=== PATIENT | female | born 1930 | race African-American/Black ===

== ENCOUNTER 2017-06-21 01:14 | Inpatient (IN) | payer OTHER, MEDICARE ==
[~2017-06-21] VITALS: Ht 160 cm; Wt 99.8 kg
[2017-06-21] VITALS (13 sets, daily range): BP systolic 0–138; BP diastolic 0–89
--- NOTE | 2017-06-21 01:14 | NUR ---
PT BIBA ALS. DR. MEZA EVALUATING PATIENT ON [facility] [place]
--- NOTE | 2017-06-21 01:22 | NUR ---
PT TAKEN TO BED 11
--- NOTE | 2017-06-21 01:29 | NUR ---
Note karsten in ED - 06/21/17 at 0147 by MEDFL CALLED/SPOKED TO POISON CONTROL MALIA; INSTRUCTIONS ARE TO WATCH FOR HYPOGLYCEMIA;N/V; 2 HOUR OBSERVATION IS RECOMMENDATION WITH ACCUCHECK; ER MD DR MEZA MADE AWARE
--- NOTE | 2017-06-21 01:29 | NUR ---
PATIENT PRESENTS TO ED WITH LEAKING G TUBE. PT DENIES N/V/D; SKIN IS PINK/WARM/DRY; AAOX1 WITH EVEN AND STEADY GAIT; LUNGS CLEAR BL; HR EVEN AND REGULAR; PT DENIES ANY FEVER, CP, SOB, OR COUGH AT THIS TIME; PATIENT STATES PAIN OF 0/10 AT THIS TIME; VSS; PATIENT POSITIONED FOR COMFORT; HOB ELEVATED; BEDRAILS UP X2; BED DOWN. ER MD MADE AWARE OF PT STATUS.
--- NOTE | 2017-06-21 01:36 | NUR ---
PT IS TRACH TO VENT AC/VC MODE FIO2 28 VT 450ML RATE 10 FLOW 40 PEEP 5 PMAX 40
--- NOTE | 2017-06-21 01:37 | NUR ---
RT, LAB, AND X-RAY AT BEDSIDE
--- NOTE | 2017-06-21 01:42 | NUR ---
Patient noted to have existing wounds upon arrival to ER. Photos taken of wound and placed in chart. Wound covered with dressing. Physician informed.
--- NOTE | 2017-06-21 01:50 | NUR ---
PT CAME THRU ER. PT IS TRACHED WITH PORTEX 7. TRACH IS IN PLACE AND SECURED. PT IS VENT DEPENDENT. PT ON VENT WITH SETTINGS AC 10,450,+5,24%(SETTINGS PER HER TRANSPORT RT) . PT IS AWAKE. DAUGHTER AT BEDSIDE. VENT IS CONNECTED TO RED OUTLET. ALARMS ARE AUDIBLE. NO SOB OR DISTRESS NOTED. TRIED TO COLLECT SPUTUM SAMPLE BUT IS CLEAR AT THIS TIME. MD MEZA AWARE. NO ORDERS OF NOW. WILL CONTINUE TO MONITOR.
[2017-06-21 02:03] LABS: BASOPHILS # (AUTO) 0.1 K/uL (0.00-0.22); BASOPHILS % (AUTO) 1.8 % (0.0-2.0); EOSINOPHILS # (AUTO) 0.1 K/uL (0-0.4); HEMOGLOBIN 8.9 g/dL (12.0-16.0); LYMPHOCYTES # (AUTO) 1.7 K/uL (2.5-16.5); LYMPHOCYTES % (AUTO) 30.7 % (20.5-51.1); MEAN CORPUSCULAR HEMOGLOBIN 32 pg (27-31); MEAN CORPUSCULAR HGB CONC 33 g/dL (33-37); MEAN CORPUSCULAR VOLUME 96 fL (80-94); MONOCYTES # (AUTO) 0.3 K/uL (0.8-1.0); MONOCYTES % (AUTO) 6.1 % (1.7-9.3); NEUTROPHILS # (AUTO) 3.4 K/uL (1.8-7.7); NEUTROPHILS % (AUTO) 60.4 % (42.2-75.2); PLATELET COUNT (AUTO) 244 K/uL (140-450); RED BLOOD CELL COUNT(AUTO) 2.81 MIL/uL (4.20-5.40); WHITE BLOOD COUNT (AUTO) 5.6 K/uL (4.8-10.8)
[2017-06-21 02:27] LABS: PROTHROMBIN TIME 11.9 secs (10.8-13.4)
[2017-06-21 02:30] LABS: ALBUMIN 2.1 g/dL (3.4-5.0); ANION GAP 14.1 (8-16); ASPARTATE AMINOTRANSFERASE 18 U/L (15-37); CARBON DIOXIDE 26.6 mmol/L (21-32); CHLORIDE 98 mmol/L (98-107); CREATININE 2.5 mg/dL (0.6-1.3); GLUCOSE 83 mg/dL (74-106); POTASSIUM 4.7 mmol/L (3.5-5.1); SODIUM SERUM 134 mmol/L (136-145)
[2017-06-21 02:32] LABS: UREA NITROGEN, BLOOD 117 mg/dL (7-18)
[2017-06-21] MEDS ORDERED: NACL 0.9% 1,000 ML IV SCH (03:26)
[2017-06-21] MEDS ORDERED: DOCUSATE SODIUM 100 MG GELCAP PO PRN (03:30)
[2017-06-21] MEDS ORDERED: ACETAMINOPHEN 325 MG TAB PO PRN (03:30)
[2017-06-21] MEDS ORDERED: ONDANSETRON 4 MG/2 ML VIAL IM/IVP PRN (03:30)
[2017-06-21] MEDS ORDERED: HYDROcodone/APAP 7.5/325 MG 1 TAB PO PRN (03:30)
[2017-06-21] MEDS ORDERED: MORPHINE SULFATE 2 MG/ML SYR IVP PRN (03:30)
[2017-06-21] MEDS ORDERED: ASPI81CT89 PO (03:51)
[2017-06-21] MEDS ORDERED: ACET-2619 GT (03:51)
[2017-06-21] MEDS ORDERED: LOSA25TA22 GT (03:51)
[2017-06-21] MEDS ORDERED: FURO-572 GT (03:51)
[2017-06-21] MEDS ORDERED: SENN-73 GT (03:51)
[2017-06-21] MEDS ORDERED: POTA10TE30 GT (03:51)
[2017-06-21] MEDS ORDERED: ASCO500T45 GT/PO (03:51)
[2017-06-21] MEDS ORDERED: DIGO0.122 GT (03:51)
[2017-06-21] MEDS ORDERED: CARV6.25 PO (03:51)
[2017-06-21] MEDS ORDERED: KEP500L GT (03:51)
[2017-06-21] MEDS ORDERED: PRON INH (03:51)
[2017-06-21] MEDS ORDERED: CHLO480L1 PO (03:51)
[2017-06-21] MEDS ORDERED: METF1000 GT (03:51)
[2017-06-21] MEDS ORDERED: FERR75LI22 GT (03:51)
--- NOTE | 2017-06-21 04:02 | NUR ---
RECEIVED REPORT FROM PRIVATE DUTY LPN, PT IS APHASIC, ON A TRACH TO VENT WITH SETTINGS FOLLOWS: FIO2 28%, PEEP 5, VT 450, RATE 10. PT HAS PICC LINE TO LEFT UPPER ARM, ACCORDING TO PT DAUGHTER IT WAS PUT IN AT [facility] LAST WEEK. PT IS BEDBOUND WITH UPPER EXTREMITIES CONTRACTED AND LOWER EXTREMITIES EXTENDED, PT HAS SACRAL PRESSURE WOUND. UPDATED BOARD. HUNG BAG OF IV FLUIDS (NS@90ML/HR). OBTAINED MRSA SWAB OF NARES AND SENT TO LAB. DISCUSSED PLAN OF CARE WITH PT DAUGHTER, PT DAUGHTER VERBALIZED UNDERSTANDING. VITAL SIGNS WITHIN NORMAL LIMITS. PT IN STABLE CONDITION, NO SIGNS OF DISTRESS NOTED. ER NURSE SAID BLOOD SUGAR WAS 59 BEFORE COMING TO ER AND ER DOCTOR TOLD NURSE NOT TO GIVE ANYTHING. CALLED DR ZAMORA AND ASKED IF IT WAS OKAY TO OVERRIDE PYXIS TO GET DEXTROSE 50%, DR ZAMORA AGREED AND SAID HE WOULD ALSO CHANGE IVF. BED IN LOWEST POSITION, CALL LIGHT WITHIN REACH. WILL CONTINUE TO MONITOR.
--- NOTE | 2017-06-21 04:04 | NUR ---
Patient will be admitted to care of DR. CHRISTIAN. Admited to MED SURG. Will go to [facility] [address]. Belongings list completed. Report to JARVIS LUCERO. ALSO ENDORSE BS 59 , ER MD DR. LAU STATES HE WILL CONTACT ADMITTING DR LESLIE FLOOR ORDERS.
[2017-06-21] MEDS ORDERED: DEXTROSE 25% 10 ML SYR IVP ONE (04:05)
[2017-06-21] MEDS ORDERED: DEXTROSE 50% 50 ML SYR IVP ONE (04:06)
[2017-06-21] MEDS ORDERED: DEXTROSE 50% 50 ML SYR IVP PRN (04:10)
[2017-06-21] MEDS: DEXT 5% /NACL 0.9% 1,000 ML IV SCH ×2 (04:14→14:46)
--- NOTE | 2017-06-21 04:15 | NUR ---
TRANSFERRED PT FROM ED TO TELE WITH NO INCIDENT. PT IS AWAKE. DAUGHTER AT BEDSIDE. NO SOB OR DISTRESS NOTED. CLEAR BREATH SOUNDS. WILL CONTINUE TO MONITOR.
--- NOTE | 2017-06-21 04:20 | NUR ---
ADMINISTERED DEXTROSE AND REPLACED BAG OF NS WITH BAG OF D5NS@100ML/HR. PT IN STABLE CONDITION, NO SIGNS OF DISTRESS NOTED. BED IN LOWEST POSITION, CALL LIGHT WITHIN REACH. WILL CONTINUE TO MONITOR.
[2017-06-21 04:43] LABS: PHOSPHORUS 5.7 mg/dL (2.5-4.9); THYROID STIMULATING HORMONE 3.31 uIU/mL (0.34-3.74)
[2017-06-21 04:45] LABS: CHOL/HDL RATIO 20.2 (1-4.5)
--- NOTE | 2017-06-21 06:35 | NUR ---
APPLIED ORDERED SCD'S.
[2017-06-21] MEDS: BLOOD GLUCOSE MONITORING 1 DEV DEV FS SCH ×4 (07:00→21:11)
--- NOTE | 2017-06-21 07:21 | NUR ---
ENDORSED PT IN STABLE CONDITION TO DAY SHIFT RN FOR CONTINUITY OF CARE.
--- NOTE | 2017-06-21 07:21 | NUR ---
ENDORSED PT IN STABLE CONDITION TO DAY SHIFT RN FOR CONTINUITY OF CARE.
--- NOTE | 2017-06-21 07:22 | NUR ---
RECEIVED REPORT FROM NURSING PROJECT COORDINATOR NURSE. PATIENT LYING DOWN IN BED SLEEPING, AROUSABLE BY VOICE AND LIGHT SHAKING. NO DISTRESS NOTED. RESPIRATIONS EVEN, UNLABORED, ON TRACH TO VENT DEPENDENT. VENTILATOR SETTINGS: FIO2:24%, VT:450, RATE:10, PEEP:5. AAOX1, APHASIC, SKIN COLOR APPROPRIATE TO ETHNICITY, WARM TO TOUCH. AAOX1, APHASIC, NON-VERBAL. HAS SACRAL WOUND, DRESSING IS DRY AND INTACT. WOUND CARE EVALUATION CONSULT ALREADY IN PLACE FOR TODAY. LUNGS WHEEZING HEARD THROUGHOUT ALL LOBES. ABDOMEN SOFT, OLD GTUBE IN PLACE WITH STOMA COVERED IN DRESSING AND SHOWS GREENISH/BLACK DRAINAGE ON DRESSING. GREGG CATHETER IN PLACE, DRAINING CLEAR, YELLOW URINE. REVIEWED PLAN OF CARE WITH PATIENT. UNABLE TO COMPREHEND. SAFETY MEASURES IN PLACE, CALL LIGHT WITHIN REACH, FALL PRECAUTIONS IN PLACE. WILL CONTINUE TO MONITOR.
[2017-06-21] MEDS: ALBUTEROL SULFATE/IPRATROPIU 3 ML SOL IH SCH ×3 (08:08→14:55)
--- NOTE | 2017-06-21 08:09 | NUR ---
RECEIVED ON A [employer] R860 VENTILATOR PLUGGED INTO RED OUTLET TOLERATING WELL WITHOUT ADVERSE REACTIONS NOTED TO A PORTEX DCT #7 AIRWAY SECURED WITH A TRACH TUBE KATE CUFF PRESSURE MEASURED NOTED WITH A BRYSON CUFFLATOR AMBU BAG AT HOB LOC ASLEEP RESTING WELL BREATH SOUNDS RHONCHI BILATERAL WITH GOOD CHEST RISE DEP TRACHEAL SUCTION FOR MODERATE THICK YELLOW SECRETIONS AIRWAY PATENT
[2017-06-21] MEDS ORDERED: ALBUTEROL SULFATE/IPRATROPIU 3 ML SOL IH SCH (09:00)
[2017-06-21] MEDS: LOSARTAN 25 MG TAB GT SCH (09:00)
[2017-06-21] MEDS ORDERED: FERROUS SULFATE 300 MG/5 ML UDC GT SCH (09:00)
[2017-06-21] MEDS ORDERED: CALCIUM ACETATE 667 MG TAB PO SCH (09:00)
[2017-06-21] MEDS ORDERED: FUROSEMIDE 40 MG/5 ML ORAL SOL UDC GT SCH (09:00)
[2017-06-21] MEDS ORDERED: SENNA 8.6 MG TAB GT SCH (09:00)
[2017-06-21] MEDS: CARVEDILOL 6.25 MG TAB GT SCH (09:00)
[2017-06-21] MEDS ORDERED: ASPIRIN 81 MG TAB.CHEW PO ONE (09:00)
[2017-06-21] MEDS ORDERED: metFORMIN 850 MG TAB GT SCH (09:00)
--- NOTE | 2017-06-21 09:30 | NUR ---
WOUND CARE EVALUATION NOTE REASON FOR EVALUATION: INTERGLUTEAL MOISTURE ASSOCIATED SKIN DAMAGE COMPLETE SKIN ASSESSMENT DONE ON THIS 87 Y/O FEMALE PATIENT ADMITTED TO [facility] FOR G-TUBE MALFUNCTION. PAST MEDICAL HX INCLUDE ANEMIA, DM, CHRONIC RESPIRATORY FAILURE AND STROKE WITH LEFT SIDED HEMIPARESIS. ALL ABOVE INFORMATION WAS OBTAINED FROM THE ADMISSION H&P. LABS ARE WBC 5.6, H/H 8.9/27.0, GLUCOSE 83, ALBUMIN 2.1. PT IS APHASIC, TRACH TO VENT. SKIN WARM AND DRY, NON-PITTING EDEMA NOTED NOTED TO BLE, NO HAIR GROWTH, BILATERAL DORSAL PEDAL PULSES PRESENT. GREGG CATHETER IN PLACE DRAINING CLEAR YELLOW URINE. PATIENT NEEDS MAXIMUM ASSISTANCE IN TURNING. INITIAL PLAN OF CARE AND PRESSURE PREVENTIVE MEASURE DISCUSSED WITH PRIMARY RN. INTEGUMENTARY: INTERGLUTEAL MOISTURE ASSOCIATED SKIN DAMAGE WITH MEASUREMENTS 1.5CM X 1.0CM X 0.2CM RIGHT HAND SKIN TEAR TRACHEOSTOMY STOMA SITE CLEAN AND SURROUNDING SITE INTACT DRAINAGE NOTED TO GT STOMA SITE PICC LINE TO THE LEFT UPPER ARM INTACT COVERED WITH CLEAN AND DRY DRESSING RECOMMENDATIONS -CLEANSE INTERGLUTEAL SKIN DAMAGE WITH SOAP AND WATER. PAT DRY. APPLY Z-GUARD THEN COVER WITH OPTIFOAM DRESSING BID OR PRN IF SOILING -CONSULT GI SPECIALIST FOR G-TUBE LEAK. -DRY GT STOMA SURROUNDING WITH GAUZE. CLEANSE WITH SUREPREP SKIN PROTECTIVE BARRIER WIPE. APPLY DRAIN SPONGE DRESSING DAILY OR PRN -APPLY VERSATEL DRESSING TO RIGHT HAND SKIN TEAR. CHANGE DRESSING Q7DAYS OR PRN - TURN AND REPOSITION PATIENT Q2H TO LEFT AND RIGHT ONLY TO OFFLOAD SACRALCOCCYX -ASSESS AND MONITOR SKIN CONDITION DURING POSITION CHANGE -OFFLOAD BILATERAL HEELS BY PLACING PILLOWS UNDER CALVES AT ALL TIMES, UNLESS CONTRAINDICATED -PRESSURE REDISTRIBUTION SURFACE THERAPY -KEEP SKIN CLEAN AND DRY AT ALL TIMES -RD CONSULT RECOMMENDATIONS DISCUSSED WITH PRIMARY RN. PLEASE CONTACT WOUND CARE NURSE FOR ANY QUESTIONS AND CHANGES IN SKIN CONDITION.
--- NOTE | 2017-06-21 09:48 | NUR ---
AWAKE STABLE NO EVIDENCE OF PULMONARY DISTRESS NOTED BREATH SOUNDS DIFFUSED RHONCHI BILATERAL WITH GOOD CHEST RISE DEEP TRACHEAL SUCTION FOR SMALL THICK PALE YELLOW SECRETIONS AIRWAY PATENT
--- NOTE | 2017-06-21 10:15 | NUR ---
PATIENT LYING IN BED COMFORTABLY. NO DISTRESS NOTED. VENTILATOR SETTING UNCHANGED. SCHEDULED MEDICATIONS DUE GIVEN PER DR. HARRELL ORDERS EVEN THOUGH GTUBE IS LEAKING. CALLED DR. OSUNA FOR GI CONSULT AND POSSIBLE GTUBE REPLACEMENT TODAY. DR. OSUNA VERBALIZED THAT HE WILL STOP BY AND POSSIBLY REPLACE GTUBE SOMETIME TODAY. SAFETY MEASURES IN PLACE, CALL LIGHT WITHIN REACH, FALL PREVENTIONS IN PLACE. WILL CONTINUE TO MONITOR.
[2017-06-21] MEDS: levETIRAcetam 100 MG/ML ORASYR GT SCH ×2 (10:18→21:52)
[2017-06-21] MEDS: PANTOPRAZOLE 40 MG INJ VIAL IVP SCH (10:19)
[2017-06-21] MEDS: DIGOXIN 0.125 MG/2.5 ML UDC GT SCH (10:19)
--- NOTE | 2017-06-21 10:35 | NUR ---
PATIENT HAS BEEN SCREENED AND CATEGORIZED HIGH NUTRITION RISK. PATIENT WILL BE SEEN WITHIN 1-2 DAYS OF ADMISSION. 06/21/17 - 06/22/[address]
--- NOTE | 2017-06-21 10:42 | NUR ---
REG NOTE PER ANNE OF [facility] PH# [phone], REG IS ABDULKADIR INITIAL REVIEW FAXED TO [facility] [phone] PH# [phone] REG PANCHAL EXT [phone]
[2017-06-21 10:45] LABS: AMYLASE 42 U/L (25-115); ANION GAP 14.7 (8-16); ASPARTATE AMINOTRANSFERASE 18 U/L (15-37); CARBON DIOXIDE 27.8 mmol/L (21-32); CHLORIDE 99 mmol/L (98-107); CREATININE 2.5 mg/dL (0.6-1.3); GLUCOSE 127 mg/dL (74-106); POTASSIUM 4.5 mmol/L (3.5-5.1); SODIUM SERUM 137 mmol/L (136-145)
[2017-06-21 10:52] LABS: UREA NITROGEN, BLOOD 114 mg/dL (7-18)
[2017-06-21] MEDS ORDERED: MILD SOAP AND WATER TP PRN (11:45)
[2017-06-21] MEDS ORDERED: Z-GUARD PASTE TP PRN (11:45)
--- NOTE | 2017-06-21 11:45 | NUR ---
ULTRASOUND IN PROGRESS SHEEP AND WHEAT FARMER TO ATTEMPT HHN THERAPY, PATIENT AND VENTILATOR ASSESSMENT AT A LATER TIME NO PATIENT DISTRESS NOTED
--- NOTE | 2017-06-21 12:04 | NUR ---
NO PULMONARY DISTRESS NOTED AT THIS TIME GOOD CHEST RISE BREATH SOUNDS RALES AT RIGHT SIDE TO CLEAR AT LEFT SIDE DEEP TRACHEAL SUCTION FOR SMALL THIN PALE YELLOW SECRETIONS AIRWAY PATENT
--- NOTE | 2017-06-21 13:00 | NUR ---
PATIENT LYING IN BED. NO DISTRESS NOTED. RESPIRATIONS EVEN, UNLABORED, ON VENT TO TRACH. VENTILATOR SETTINGS UNCHANGED. DR. OSUNA AT BEDSIDE REVIEWING PLAN OF CARE WITH PATIENT. PER DR. OSUNA, GTUBE REMOVED AND COVERED STOMA SITE WITH GAUZE AND PAPER TAPE TO LET STOMA SITE SIZE DECREASE IN SIZE. DR. HARRELL AWARE OF PLAN OF CARE. WILL CONTINUE TO MONITOR.
--- NOTE | 2017-06-21 13:34 | NUR ---
NO APPARENT RESPIRATORY DISTRESS NOTED GOOD CHEST RISE
--- NOTE | 2017-06-21 13:51 | NUR ---
06/21/17 RD INITIAL ASSESSMENT COMPLETED PLEASE REFER TO NUTRITION ASSESSMENT UNDER CARE ACTIVITY FOR ESTIMATED NUTRITIONAL NEEDS. 1. ONCE GTUBE SUCCESSFULLY REPLACED, RECOMMEND THE FOLLOWING NUTRITION SUPPORT: NOVASOURCE RENAL AT 30 ML/HR -THIS WILL PROVIDE 720 ML TOTAL VOLUME, 1440 KCAL, 65 GM PROTEIN AND 516 ML FREE WATER TO MEET 98% OF ESTIMATED KCAL NEEDS AND 100% OF ESTIMATED PROTEIN NEEDS 2. RD WILL CONTINUE TO MONITOR RENAL LAB VALUES. IF RENAL LAB VALUES IMPROVE, RD WILL INCREASE PROTEIN NEEDS FOR TRACH TO VENT AND PRESSURE ULCER. 3. RD TO FOLLOW-UP 2-3 DAYS, HIGH RISK ZACHARY SALVADOR RD
--- NOTE | 2017-06-21 14:55 | NUR ---
STABLE NO DISTRESS NOTED BREATH SOUNDS CLEAR BILATERAL WITH GOOD CHEST RISE AND AERATION THROUGHOUT AIRWAY PATENT
--- NOTE | 2017-06-21 15:00 | NUR ---
DR. ARCEO AT BEDSIDE REVIEWING PLAN OF CARE WITH PATIENT. WILL CONTINUE TO MONITOR.
--- NOTE | 2017-06-21 16:30 | NUR ---
PATIENT LYING IN BED COMFORTABLY. DAUGHTER AT BEDSIDE. NO DISTRESS NOTED. FLACC 0. CONDITION UNCHANGED. SAFETY MEASURES IN PLACE, CALL LIGHT WITHIN REACH. WILL CONTINUE TO MONITOR.
[2017-06-21] MEDS: CALCIUM ACETATE 667 MG TAB PO SCH (17:00)
--- NOTE | 2017-06-21 17:00 | NUR ---
PATIENT LYING DOWN IN BED WITH DAUGHTER AT BEDSIDE. NO DISTRESS NOTED CONDITION UNCHANGED. GTUBE MEDICATION DUE NOT GIVEN DUE TO NO GTUBE IN PLACE. WILL NOTIFY MD. WILL CONTINUE TO MONITOR.
[2017-06-21] MEDS ORDERED: DOCUSATE 100 MG/10 ML UDC NG PRN (17:20)
--- NOTE | 2017-06-21 18:00 | NUR ---
NO SOB NOTED GOOD CHEST RISE DEEP TRACHEAL SUCTION FOR SCANT THICK PALE YELLOW SECRETIONS AIRWAY PATENT
[2017-06-21] MEDS: PIPER/TAZO 2.25GM/D5W PREMIX 50 ML IV SCH (18:36)
--- NOTE | 2017-06-21 18:36 | NUR ---
PATIENT LYING DOWN IN BED. NO DISTRESS NOTED. RESPIRATIONS EVEN, UNLABORED, ON TRACH TO VENT. VENTILATOR SETTING UNCHANGED. SCHEDULED ANTIBIOTIC MEDICATION DUE GIVEN. DAUGHTER AT BEDSIDE. SAFETY MEASURES IN PLACE, CALL LIGHT WITHIN REACH. WILL CONTINUE TO MONITOR.
[2017-06-21] MEDS ORDERED: FUROSEMIDE 100 MG in DEXTROSE 5% 100 ML IV SCH (19:10)
[2017-06-21] MEDS ORDERED: ALBUTEROL SULFATE/IPRATROPIU 3 ML SOL IH PRN (19:20)
--- NOTE | 2017-06-21 19:27 | NUR ---
GAVE REPORT TO DROP FORGER NURSE FOR CONTINUITY OF CARE. PATIENT IN STABLE CONDITION.
--- NOTE | 2017-06-21 19:40 | NUR ---
RECEIVED PT ON AC FIO2 24%, VT 450, RR 10, PEEP 5. PT HAS PORTEX 7 AND IT IS SECURED AND PATENT. PT IS AT REST WITH NO SOB OR RESPIRATORY DISTRESS. VENTILATOR IS ON RED OUTLET AND AMBU BAG IS PRESENT IN ROOM.
[2017-06-21 20:27] LABS: APPEARANCE,URINE CLEAR (CLEAR); BILIRUBIN,URINE NEGATIVE (NEGATIVE); BLOOD, URINE 2+ (NEGATIVE); COLOR,URINE YELLOW (YELLOW); LEUKOCYTE ESTERASE ,URINE 2+ (NEGATIVE); NITRITE, URINE NEGATIVE (NEGATIVE); UGLUCOSE NEGATIVE (NEGATIVE)
[2017-06-21 20:38] LABS: RBC,URINE 0-5 (RARE) /HPF (0-5)
--- NOTE | 2017-06-21 21:45 | NUR ---
INSERTED NGT FIRST TRY, PT TOLERATED WELL. AUSCULTATED FOR PLACEMENT VERIFICATION.
[2017-06-21] MEDS: SENNA 8.6 MG TAB GT SCH (21:52)
--- NOTE | 2017-06-21 21:55 | NUR ---
ADMINISTERED SCHEDULED MEDICATIONS THROUGH NG-TUBE, PT TOLERATED WELL. PT IN STABLE CONDITION, NO SIGNS OF DISTRESS NOTED. BED IN LOWEST POSITION, CALL LIGHT WITHIN REACH. WILL CONTINUE TO MONITOR.
--- NOTE | 2017-06-21 22:12 | NUR ---
SPOKE TO DR ZAMORA ABOUT PHARMACY CALLING TO SAY THE RATE OF LASIX DRIP NEEDS TO BE ADJUSTED AND TO DOUBLE CHECK IF GTUBE LASIX WILL BE CONTINUED OR DISCONTINUED. DR ZAMORA SAID HE WILL DISCONTINUE GTUBE LASIX AND ADJUST LASIX DRIP RATE.
[2017-06-21] MEDS ORDERED: FUROSEMIDE 100 MG/10 ML VIAL ONE (23:54)
[2017-06-22] VITALS (11 sets, daily range): BP systolic 106–164; BP diastolic 40–83
--- NOTE | 2017-06-22 | NUR ---
VITAL SIGNS WITHIN NORMAL LIMITS. PT IN STABLE CONDITION, NO SIGNS OF DISTRESS NOTED. BED IN LOWEST POSITION, CALL LIGHT WITHIN REACH. WILL CONTINUE TO MONITOR.
[2017-06-22] MEDS: FUROSEMIDE 100 MG in DEXTROSE 5% 100 ML IV SCH ×3 (00:09→21:49)
--- NOTE | 2017-06-22 00:10 | NUR ---
LASIX DRIP STARTED AT 10ML/HR. VITAL SIGNS FOLLOWS BP 164/83, HR 88, RR 16, SPO2 96, TEMP 97.5, AND FLACC 0.
[2017-06-22] MEDS: PIPER/TAZO 2.25GM/D5W PREMIX 50 ML IV SCH ×4 (01:19→21:46)
--- NOTE | 2017-06-22 03:25 | NUR ---
PT CRYING/MOANING, FLACC SCORE 8, MEDICATED WITH MORPHINE TO RELIEVE PAIN. PT TOLERATED WELL.
--- NOTE | 2017-06-22 04:00 | NUR ---
VITAL SIGNS WITHIN NORMAL LIMITS. PT IN STABLE CONDITION, NO SIGNS OF DISTRESS NOTED. BED IN LOWEST POSITION, CALL LIGHT WITHIN REACH. WILL CONTINUE TO MONITOR.
--- NOTE | 2017-06-22 05:18 | NUR ---
PT IS STILL ON AC, VT 450, PEEP 5, FI02 24. PT IS NOT IN RESPIRATORY DISTRESS OR SOB. AIRWAY IS SECURED AND PATENT. DAUGHTER IS AT BEDSIDE.
--- NOTE | 2017-06-22 06:15 | NUR ---
PT STARTED COUGHING AND NGT CAME OUT. NEW NASOGASTRIC TUBE PUT IN BY JARVIS NO. PLACEMENT CHECKED BY AUSCULTATION.
[2017-06-22 06:16] LABS: T4 (THYROXINE) 6.9 ug/dL (4.5-12.0)
[2017-06-22] MEDS: BLOOD GLUCOSE MONITORING 1 DEV DEV FS SCH ×4 (06:57→21:00)
--- NOTE | 2017-06-22 06:58 | NUR ---
NO INSULIN GIVEN THROUGHOUT SHIFT BECAUSE PT NOT RECEIVING TUBE FEEDINGS OR IVF.
--- NOTE | 2017-06-22 07:19 | NUR ---
ENDORSED PT IN STABLE CONDITION TO DAY SHIFT NURSE FOR CONTINUITY OF CARE.
--- NOTE | 2017-06-22 07:20 | NUR ---
RECEIVED REPORT FROM TELEMEDICINE PHYSICIAN NURSE. PATIENT IS CURRENTLY SLEEPING. AROUSABLE BY VOICE. PATIENT IS APHASIC. PATIENT SHOWS NO S/S OF RESPIRATORY DISTRESS. LUNGS ARE CLEAR. PATIENT ON TRACH TO VENT SETTINGS AT FIO2 24%, VT 450, RATE 10, PEEP 5, FLOW 30L/MIN, PMAX 45CM H20. NG TUBE IN PLACE AT INTERMITTENT SUCTION. NO GTUBE PRESENT AT THIS TIME, GTUBE STOMA IS COVERED W GAUZE DRESSING. DRESSING IS DRY AND INTACT. L FOREARM PICC DOUBLE LUMEN IN PLACE INFUSING LASIX DRIP AT 10ML/HR. PICC LINE IS CLEAN, DRY, AND INTACT. +1 PITTING EDEMA IN BILATERAL HANDS, BUE W NON PITTING EDEMA. GREGG CATHETER IN PLACE, CLEAN AND INTACT. SACRAL WOUND STAGE 2, DRESSING IN PLACE, DRY AND INTACT. REVIEWED PLAN OF CARE WITH PATIENT. UNABLE TO COMPREHEND. SAFETY MEASURES IN PLACE. WILL CONTINUE TO MONITOR.
[2017-06-22 07:48] LABS: BASOPHILS # (AUTO) 0.2 K/uL (0.00-0.22); BASOPHILS % (AUTO) 2.5 % (0.0-2.0); EOSINOPHILS % (AUTO) 0.7 % (0.0-4.0); HEMATOCRIT 28.1 % (36-48); HEMOGLOBIN 9.2 g/dL (12.0-16.0); LYMPHOCYTES # (AUTO) 1.1 K/uL (2.5-16.5); LYMPHOCYTES % (AUTO) 17.4 % (20.5-51.1); MEAN CORPUSCULAR HEMOGLOBIN 32 pg (27-31); MEAN CORPUSCULAR HGB CONC 33 g/dL (33-37); MEAN CORPUSCULAR VOLUME 97 fL (80-94); MONOCYTES # (AUTO) 0.4 K/uL (0.8-1.0); MONOCYTES % (AUTO) 6.7 % (1.7-9.3); NEUTROPHILS # (AUTO) 4.8 K/uL (1.8-7.7); NEUTROPHILS % (AUTO) 72.7 % (42.2-75.2); PLATELET COUNT (AUTO) 262 K/uL (140-450); RED BLOOD CELL COUNT(AUTO) 2.89 MIL/uL (4.20-5.40); WHITE BLOOD COUNT (AUTO) 6.4 K/uL (4.8-10.8)
[2017-06-22 07:54] LABS: PROTHROMBIN TIME 12.3 secs (10.8-13.4)
[2017-06-22 07:58] LABS: MAGNESIUM 1.8 mg/dL (1.8-2.4); PHOSPHORUS 5.6 mg/dL (2.5-4.9)
[2017-06-22 08:24] LABS: ANION GAP 19.1 (8-16); CARBON DIOXIDE 24.2 mmol/L (21-32); CHLORIDE 100 mmol/L (98-107); CREATININE 2.8 mg/dL (0.6-1.3); GLUCOSE 168 mg/dL (74-106); POTASSIUM 4.3 mmol/L (3.5-5.1); SODIUM SERUM 139 mmol/L (136-145)
--- NOTE | 2017-06-22 08:38 | NUR ---
ENDORSED PT IN STABLE CONDITION TO DAY SHIFT NURSE FOR CONTINUITY OF CARE. Addendum: 06/22/17 at 0839 by Dee Hernandez RN WRONG INPUT. PLEASE DISREGARD.
[2017-06-22 08:50] LABS: UREA NITROGEN, BLOOD 105 mg/dL (7-18)
[2017-06-22] MEDS: LOSARTAN 25 MG TAB GT SCH (09:00)
[2017-06-22] MEDS: CARVEDILOL 6.25 MG TAB GT SCH (09:00)
[2017-06-22] MEDS: SENNA 8.6 MG TAB GT SCH ×2 (09:37→21:46)
[2017-06-22] MEDS: CALCIUM ACETATE 667 MG TAB PO SCH ×2 (09:37→17:20)
[2017-06-22] MEDS: LACTOBACILLUS RHAMNOSUS GG 1 EACH CAP NG SCH (09:37)
[2017-06-22] MEDS: DIGOXIN 0.125 MG/2.5 ML UDC GT SCH (09:37)
[2017-06-22] MEDS: PANTOPRAZOLE 40 MG INJ VIAL IVP SCH (09:38)
[2017-06-22] MEDS: levETIRAcetam 100 MG/ML ORASYR GT SCH ×2 (09:39→21:46)
--- NOTE | 2017-06-22 09:40 | NUR ---
PATIENT LYING IN BED COMFORTABLY. NO DISTRESS NOTED. FLACC 0. VENTILATOR SETTING UNCHANGED. SCHEDULED MEDICATIONS DUE GIVEN. SAFETY MEASURES IN PLACE, CALL LIGHT WITHIN REACH. WILL CONTINUE TO MONITOR.
--- NOTE | 2017-06-22 09:44 | NUR ---
CM NOTE CONCURRENT REVIEW FAXED TO [facility] [phone] # [phone] REG ABDULKADIR EXT [phone]
--- NOTE | 2017-06-22 11:30 | NUR ---
ASSISTING DISPENSING OPERATOR IN REPOSITIONING PATIENT. NO DISTRESS NOTED. CONDITION UNCHANGED. WILL CONTINUE TO MONITOR.
[2017-06-22] MEDS: CHLORHEXADINE GLUC 2% CLOTH TP SCH (12:00)
--- NOTE | 2017-06-22 13:30 | NUR ---
PATIENT LYING IN BED WITH NO DISTRESS. ASSISTED SCIENCE LIAISON IN CLEANING AND REPOSITIONING THE PATIENT. WOUND CARE DRESSING CHANGED IN SACRAL AREA PER ORDERED. GTUBE DRESSING CHANGED. MODERATE AMOUNT OF BROWNISH DRAINAGE NOTED ON OLD GTUBE DRESSING. PERFORMED TRACH SUCTIONING. SAFETY MEASURES IN PLACE. CALL LIGHT WITHIN REACH, WILL CONTINUE TO MONITOR.
--- NOTE | 2017-06-22 15:00 | NUR ---
DR CALLES AND DR HARRELL AT BEDSIDE REVIEWING PLAN OF CARE WITH PATIENTS DAUGHTER AT BEDSIDE. WILL CONTINUE TO MONITOR.
[2017-06-22] MEDS: MUPIROCIN 2% OINT 22 GM TUBE TP SCH (17:20)
--- NOTE | 2017-06-22 18:05 | NUR ---
PATIENTS DAUGHTER AT BEDSIDE. PATIENT SHOWS NO S/SX OF DISTRESS ON TRACH TO VENT. ANSWERED ALL DAUGHTERS QUESTIONS AT THIS TIME. WILL CONTINUE TO MONITOR.
[2017-06-22] MEDS ORDERED: FUROSEMIDE 100 MG in DEXTROSE 5% 100 ML IV SCH (18:10)
--- NOTE | 2017-06-22 19:28 | NUR ---
GAVE REPORT TO COO NURSE. ENDORSED PATIENT IN STABLE CONDITION.
--- NOTE | 2017-06-22 19:30 | NUR ---
RECEIVED REPORT FROM AM NURSE. INITIAL ASSESSMENT COMPLETED. TRACH TO VENT FIO2 24%, TV 450 AC 10 PEEP 5. NGT TO RIGHT NARE IN PLACE, PATENT, INTACT, ON CONTINUOUS NGT FEEDING. NO RESIDUAL AT THIS TIME. IV ACCESS LEFT UPPER ARM PICCLINE PATENT INTACT. PREVIOUS GT TUBE SITE COVERED WITH GAUZE. SACRAL PRESSURE ULCER DRESSING DRY AND INTACT AT THIS TIME. GREGG CATH IN PLACE. ON CONTACT ISOLATION. BED IN LOW POSITION, SAFETY MEASURE ENSURE. WILL CONTINUE TO MONITOR.
[2017-06-22] MEDS: INSULIN LISPRO SLIDING SCALE 100 UNITS/ML VIAL SUBQ PRN (22:28)
--- NOTE | 2017-06-22 23:35 | NUR ---
NO SIGNS OF DISTRESS NOTED. WILL CONTINUE TO MONITOR.
[2017-06-23] VITALS: BP 116/71
--- NOTE | 2017-06-23 02:53 | NUR ---
VENT CHECK DONE. PT IS AWAKE QUIET. NO DISTRESS NOTED. SXN'D SML AMOUNT OF THICK YELLOW SECRETIONS.
[2017-06-23 04:00] VITALS: BP 111/54
--- NOTE | 2017-06-23 04:20 | NUR ---
MORNING CARE DONE. PT TOLERATED WELL. PREVIOUS GT TUBE SITE DRESSING CHANGED. SACRAL DRESSING DRY AND INTACT. WILL CONTINUE TO MONITOR.
[2017-06-23] MEDS: PIPER/TAZO 2.25GM/D5W PREMIX 50 ML IV SCH ×3 (05:08→20:23)
[2017-06-23 06:50] LABS: BASOPHILS # (AUTO) 0.1 K/uL (0.00-0.22); EOSINOPHILS # (AUTO) 0.1 K/uL (0-0.4); HEMATOCRIT 26.6 % (36-48); HEMOGLOBIN 8.7 g/dL (12.0-16.0); LYMPHOCYTES # (AUTO) 1.2 K/uL (2.5-16.5); LYMPHOCYTES % (AUTO) 17.2 % (20.5-51.1); MEAN CORPUSCULAR HEMOGLOBIN 32 pg (27-31); MEAN CORPUSCULAR HGB CONC 33 g/dL (33-37); MEAN CORPUSCULAR VOLUME 97.5 fL (80-94); MONOCYTES # (AUTO) 0.3 K/uL (0.8-1.0); MONOCYTES % (AUTO) 4.5 % (1.7-9.3); NEUTROPHILS # (AUTO) 5.3 K/uL (1.8-7.7); NEUTROPHILS % (AUTO) 75.3 % (42.2-75.2); PLATELET COUNT (AUTO) 264 K/uL (140-450); RED BLOOD CELL COUNT(AUTO) 2.73 MIL/uL (4.20-5.40); RED CELL DISTRIBUTION WIDTH 21.6 % (11.6-13.7)
--- NOTE | 2017-06-23 06:50 | NUR ---
DAUGHTER CAME AND SIGNED CONSENT FOR US GUIDED THORACENTESIS.
[2017-06-23] MEDS: BLOOD GLUCOSE MONITORING 1 DEV DEV FS SCH ×4 (06:54→21:44)
[2017-06-23] MEDS: INSULIN LISPRO SLIDING SCALE 100 UNITS/ML VIAL SUBQ PRN ×4 (06:58→21:44)
--- NOTE | 2017-06-23 07:03 | NUR ---
RECEIVED TRACH PT WITH A PORTEX 7 ON VENT. SETTINGS AC 10, VT 450, PEEP 5 AND FIO2 24%. PT IS NOT DEMONSTRATING ANY SIGNS/SYMPTOMS OF RESPIRATORY DISTRESS AND IS NOT SOB. TRACH IS SECURE WITH A PATENT AIRWAY. VENT IS PLUGGED INTO RED OUTLET WITH ALARMS ON AND FUNCTIONING. WILL CONTINUE TO MONITOR.
[2017-06-23 07:28] LABS: CARBON DIOXIDE 24.7 mmol/L (21-32); CHLORIDE 99 mmol/L (98-107); CREATININE 2.9 mg/dL (0.6-1.3); GLUCOSE 192 mg/dL (74-106); POTASSIUM 3.7 mmol/L (3.5-5.1); SODIUM SERUM 139 mmol/L (136-145)
--- NOTE | 2017-06-23 07:30 | NUR ---
RECEIVED REPORT FROM PM NURSE. PT CONTACT ISOLATION , MONITOR SHOWS A-FIB. PT OPENS EYES, UNABLE TO FOLLOW COMMANDS. TRACH TO VENT FIO2 24%, TV 450 AC 10 PEEP 5. NGT TO RIGHT NARE IN PLACE, PATENT, INTACT, ON CONTINUOUS NGT FEEDING. NO RESIDUAL NOTED AT THIS TIME. IV ACCESS TO LEFT UPPER ARM PICC LINE . GT TUBE SITE COVERED WITH GAUZE, LEAKING AND DRESSING SOAKED . WILL CHANGE DRESSING . SKIN NON INTACT, SEE WOUND ASSESSMENT. GREGG CATH IN PLACE WITH SMALL AMOUNT OF YELLOW URINE NOTED. BED IN LOW POSITION, WILL CONTINUE TO MONITOR.
[2017-06-23 07:32] LABS: UREA NITROGEN, BLOOD 108 mg/dL (7-18)
--- NOTE | 2017-06-23 07:35 | NUR ---
REPORT GIVEN TO JARVIS ROMERO FOR CONTINUITY OF CARE.
[2017-06-23 08:00] VITALS: BP 114/51
--- NOTE | 2017-06-23 08:00 | NUR ---
ORAL CARE GIVEN, G-TUBE SITE DRESSING CHANGED .
[2017-06-23] MEDS: levETIRAcetam 100 MG/ML ORASYR GT SCH ×2 (08:22→20:22)
[2017-06-23] MEDS: SENNA 8.6 MG TAB GT SCH ×2 (08:23→20:23)
[2017-06-23] MEDS: LACTOBACILLUS RHAMNOSUS GG 1 EACH CAP NG SCH (08:23)
[2017-06-23] MEDS: PANTOPRAZOLE 40 MG INJ VIAL IVP SCH (08:23)
[2017-06-23] MEDS: DIGOXIN 0.125 MG/2.5 ML UDC GT SCH (08:23)
[2017-06-23] MEDS: LOSARTAN 25 MG TAB GT SCH (08:24)
[2017-06-23] MEDS: CALCIUM ACETATE 667 MG TAB PO SCH ×2 (08:24→16:23)
[2017-06-23] MEDS: CARVEDILOL 6.25 MG TAB GT SCH ×2 (08:27→09:00)
[2017-06-23 08:30] LABS: MAGNESIUM 1.7 mg/dL (1.8-2.4); PHOSPHORUS 5.6 mg/dL (2.5-4.9)
--- NOTE | 2017-06-23 08:50 | NUR ---
NOTIFIED DR. KAY PT VITALS, AND PT IS ON LASIX DRIP. ASKED IS IT OK TO GIVE BOTH COZAAR AND CARVEDILOL, PER DR. KAY, HOLD CARVEDILOL, WILL CARRY OUT.
[2017-06-23] MEDS: FUROSEMIDE 100 MG in DEXTROSE 5% 100 ML IV SCH (09:46)
--- NOTE | 2017-06-23 11:21 | NUR ---
CM NOTE CONCURRENT REVIEW FAXED TO [facility] [phone] # [phone] REG ABDULKADIR EXT [phone]
--- NOTE | 2017-06-23 11:41 | NUR ---
PT SUCTIONED OBTAINED SMALL AMOUNT OF THICK YELLOW SECRETIONS, AIRWAY IS PATENT AND TRACH IS SECURE. PT NOT IN ANY DISTRESS AT THIS TIME WILL CONTINUE TO MONITOR.
[2017-06-23 12:00] VITALS: BP 110/41
[2017-06-23] MEDS: CHLORHEXADINE GLUC 2% CLOTH TP SCH (12:16)
[2017-06-23] MEDS ORDERED: MAGNESIUM OXIDE 400 MG TAB NG SCH (12:30)
--- NOTE | 2017-06-23 12:56 | NUR ---
STOP LASIX DRIPS PER ORDER.
--- NOTE | 2017-06-23 13:50 | NUR ---
PT HAVING PROCEDURE DONE AT THIS TIME. PT NOT SOB AND NOT IN RESPIRATORY DISTRESS. VENTILATOR PARAMETERS WITHIN NORMAL LIMITS. WILL CONTINUE TO MONITOR.
--- NOTE | 2017-06-23 14:00 | NUR ---
DR. KEENAN STARTED THORACENTESIS AT 1345, PROCEDURE DONE AT 1400. TIME OUT DONE. TOTAL OUTPUT 1100 ML, PT TOLERATED WELL. THE WHOLE BOTTLE OF FLUID WAS SENT TO LAB .
[2017-06-23 14:24] LABS: POTASSIUM,URINE RANDOM 38 mmol/L (12-75); URINE SODIUM, RANDOM 38 mmol/l (40-220)
[2017-06-23] MEDS: MUPIROCIN 2% OINT 22 GM TUBE TP SCH (16:00)
[2017-06-23 16:05] VITALS: BP 107/45
[2017-06-23] MEDS: FUROSEMIDE 40 MG/4 ML VIAL IVP SCH (16:23)
[2017-06-23 16:36] LABS: APPEARANCE,SPUN,BODY FLUID CLEAR (CLEAR); APPEARANCE,UNSPUN,BODY FLUID CLEAR (CLEAR); COLOR,BODY FLUID LT YELLOW (LT YELLOW); RBC, BODY FLUID 5 /cu. mm.; SPECIMENTYPE,BODY FLUID PLEURAL; TOTAL VOLUME,BODY FLUID 1100 mL; WBC, BODY FLUID 3 /cu. mm.
[2017-06-23 16:37] LABS: GLUCOSE,BODY FLUID 214 mg/dL
--- NOTE | 2017-06-23 17:00 | NUR ---
PT'S DAUGHTER AT BEDSIDE. UPDATED PT'S CONDITION. QUESTIONS ANSWERED.
--- NOTE | 2017-06-23 17:20 | NUR ---
PT REMAINS ON DOCUMENTED VENT SETTINGS. PT IS NOT SOB AND NOT IN RESPIRATORY DISTRESS. VENT ALARMS REMAIN ON AND FUNCTIONING. TRACH REMAINS SECURE WITH A PATENT AIRWAY.
--- NOTE | 2017-06-23 19:25 | NUR ---
RECEIVED REPORT FROM DAY SHIFT, PT IS APHASIC, ON A TRACH TO VENT WITH SETTINGS FOLLOWS: FIO2 24%, PEEP 5, VT 450, RATE 10. PT HAS PICC LINE TO LEFT UPPER ARM. PT IS BEDBOUND, PT HAS SACRAL WOUND. UPDATED BOARD. DISCUSSED PLAN OF CARE WITH PT DAUGHTER, PT DAUGHTER VERBALIZED UNDERSTANDING. VITAL SIGNS WITHIN NORMAL LIMITS. PT IN STABLE CONDITION, NO SIGNS OF DISTRESS NOTED. BED IN LOWEST POSITION, CALL LIGHT WITHIN REACH. WILL CONTINUE TO MONITOR.
[2017-06-23 20:00] VITALS: BP 112/42
[2017-06-23] MEDS: LACTULOSE 20 GM/30 ML UDC NG SCH (20:22)
--- NOTE | 2017-06-23 20:30 | NUR ---
ADMINISTERED SCHEDULED MEDICATIONS PER ORDER, PT TOLERATED WELL. 0 RESIDUAL ASPIRATED, FLUSHED WITH 30ML AFTER MEDICATION ADMINISTRATION, PT TOLERATED WELL.
--- NOTE | 2017-06-23 21:30 | NUR ---
PT STARTED VOMITING, TURNED FEEDING OFF, SUCTIONED PT, AND INFORMED DR ZAMORA. DR ZAMORA SAID OK TO TURN OFF FEEDING.
--- NOTE | 2017-06-23 21:45 | NUR ---
SPOKE TO DR ZAMORA ABOUT PT BEING NPO AND BLOOD SUGAR BEING 231, DR ZAMORA SAID TO GIVE 3 UNITS OF INSULIN INSTEAD OF 4. ADMINISTERED THE 3 UNITS OF THE HUMALOG INSULIN, PT TOLERATED WELL.
[2017-06-24] VITALS: BP 132/61
--- NOTE | 2017-06-24 | NUR ---
VITAL SIGNS WITHIN NORMAL LIMITS. PT IN STABLE CONDITION, NO SIGNS OF DISTRESS NOTED. BED IN LOWEST POSITION, CALL LIGHT WITHIN REACH. WILL CONTINUE TO MONITOR.
--- NOTE | 2017-06-24 00:50 | NUR ---
DISCONTINUED GREGG CATHETER AND INSERTED NEW ONE, PT TOLERATED WELL. OBTAINED URINE SAMPLE AND SENT TO LAB FOR URINE CULTURE.
--- NOTE | 2017-06-24 02:35 | NUR ---
PT IN STABLE CONDITION, NO SIGNS OF DISTRESS NOTED. BED IN LOWEST POSITION, CALL LIGHT WITHIN REACH. WILL CONTINUE TO MONITOR.
--- NOTE | 2017-06-24 04:00 | NUR ---
VITAL SIGNS WITHIN NORMAL LIMITS. PT IN STABLE CONDITION, NO SIGNS OF DISTRESS NOTED. BED IN LOWEST POSITION, CALL LIGHT WITHIN REACH. WILL CONTINUE TO MONITOR.
--- NOTE | 2017-06-24 05:00 | NUR ---
INFORMED DR ZAMORA THAT THERE IS MODERATE TO LARGE FOUL SMELLING DISCHARGE COMING OUT THE SIDES OF NEW GTUBE. DR WILL TAKE A LOOK AT IT.
[2017-06-24 05:02] VITALS: BP 115/60
[2017-06-24 06:48] LABS: BASOPHILS # (AUTO) 0.1 K/uL (0.00-0.22); BASOPHILS % (AUTO) 1.3 % (0.0-2.0); EOSINOPHILS # (AUTO) 0.1 K/uL (0-0.4); EOSINOPHILS % (AUTO) 1.1 % (0.0-4.0); HEMATOCRIT 27.9 % (36-48); HEMOGLOBIN 9.2 g/dL (12.0-16.0); LYMPHOCYTES # (AUTO) 1.9 K/uL (2.5-16.5); LYMPHOCYTES % (AUTO) 20.4 % (20.5-51.1); MEAN CORPUSCULAR HEMOGLOBIN 32 pg (27-31); MEAN CORPUSCULAR HGB CONC 33 g/dL (33-37); MEAN CORPUSCULAR VOLUME 97.5 fL (80-94); MONOCYTES # (AUTO) 0.3 K/uL (0.8-1.0); MONOCYTES % (AUTO) 3.8 % (1.7-9.3); NEUTROPHILS # (AUTO) 6.7 K/uL (1.8-7.7); NEUTROPHILS % (AUTO) 73.4 % (42.2-75.2); PLATELET COUNT (AUTO) 238 K/uL (140-450); RED BLOOD CELL COUNT(AUTO) 2.86 MIL/uL (4.20-5.40); RED CELL DISTRIBUTION WIDTH 22.2 % (11.6-13.7); WHITE BLOOD COUNT (AUTO) 9.1 K/uL (4.8-10.8)
[2017-06-24] MEDS: BLOOD GLUCOSE MONITORING 1 DEV DEV FS SCH ×4 (06:53→20:42)
[2017-06-24] MEDS: INSULIN LISPRO SLIDING SCALE 100 UNITS/ML VIAL SUBQ PRN ×3 (06:54→16:51)
--- NOTE | 2017-06-24 06:56 | NUR ---
ASKED DR SHELDON IF INSULIN SHOULD BE GIVEN TO PT WITH 216 BLOOD SUGAR BUT NO FEEDINGS AND NO IVF. DR SAID TO ONLY GIVE 2 UNITS. ADMINISTERED THE 2UNITS AND PT TOLERATED WELL.
[2017-06-24 07:25] LABS: MAGNESIUM 1.7 mg/dL (1.8-2.4); PHOSPHORUS 5.1 mg/dL (2.5-4.9)
--- NOTE | 2017-06-24 07:26 | NUR ---
RECIVED PT ON VENT WITH SETTINGS CHARTED BREATH SOUNDS PRESENT BILAT CLEAR SXN PT WITH MIN AMT OFF WHITE SECS TACH SITE SECURE AMBU BAG AR BEDSIDE VENT PLUGGED INTO RED OUTLET WILL CONTINUE TO MONITOR PT ON VENT
--- NOTE | 2017-06-24 07:29 | NUR ---
ENDORSED PT IN STABLE CONDITION TO DAY SHIFT RN FOR CONTINUITY OF CARE.
--- NOTE | 2017-06-24 07:30 | NUR ---
RECEIVED REPORT FROM JARVIS SHEFFIELD AT BEDSIDE, PT IS ABLE TO OPEN EYES, NON-VERBAL, UNABLE TO FOLLOW COMMANDS AND MAKE NEEDS KNOWN, VSS, FLACC 0, TRACH TO VENT, NO S/S OF DISTRESS, DIMINISHED LUNG SOUNDS, A-FIB WITH BBB ON TELE MONITOR, SOFT ABDOMEN WITH HYPOACTIVE BOWEL SOUNDS, G-TUBE IN PLACE, NGT TO RIGHT NARES, POSITIVE PLACEMENT WITH 0 RESIDUALS, PER REPORT TUBE FEEDING BEEN HELD DUE TO PT HAD A VOMITING AFTER FEEDING, MD AWARE, GREGG CATHETER IN PLACE WITH CLEAR YELLOW URINE VIA GRAVITY, BEDBOUND, SEVERE WEAKNESS TO ALL EXTREMITIES, GENERALIZED EDEMA NOTED, SKIN IS WARM AND DRY TO TOUCH, OPEN WOUND PRESENT(SEE WOUND ASSESSMENT), PICC LINE TO LEFT UPPER ARM, PATENT, SL. HOB ELEVATED 30 DEGREES, SAFETY MEASURE IN PLACE, CALL LIGHT WITHIN REACH, WILL CONTINUE TO MONITOR.
--- NOTE | 2017-06-24 07:45 | NUR ---
CRITICAL LAB RESULT REPORTED TO DR. ZAVALETA, WILL FOLLOW UP WITH NEW ORDERS.
[2017-06-24 07:46] LABS: ANION GAP 19.6 (8-16); CARBON DIOXIDE 24.6 mmol/L (21-32); CHLORIDE 101 mmol/L (98-107); CREATININE 3.2 mg/dL (0.6-1.3); GLUCOSE 255 mg/dL (74-106); POTASSIUM 3.2 mmol/L (3.5-5.1); SODIUM SERUM 142 mmol/L (136-145)
[2017-06-24 07:49] LABS: UREA NITROGEN, BLOOD 106 mg/dL (7-18)
[2017-06-24 08:00] VITALS: BP 138/52
[2017-06-24] MEDS: FUROSEMIDE 40 MG/4 ML VIAL IVP SCH ×2 (08:56→16:51)
[2017-06-24] MEDS: PANTOPRAZOLE 40 MG INJ VIAL IVP SCH (08:56)
[2017-06-24] MEDS: levETIRAcetam 100 MG/ML ORASYR GT SCH ×2 (08:57→20:47)
[2017-06-24] MEDS: DIGOXIN 0.125 MG/2.5 ML UDC GT SCH (08:57)
[2017-06-24] MEDS: CALCIUM ACETATE 667 MG TAB PO SCH ×2 (08:57→16:52)
[2017-06-24] MEDS: SENNA 8.6 MG TAB GT SCH ×2 (08:58→20:48)
[2017-06-24] MEDS: CARVEDILOL 6.25 MG TAB GT SCH (08:58)
[2017-06-24] MEDS: LACTULOSE 20 GM/30 ML UDC NG SCH ×2 (08:58→20:47)
[2017-06-24] MEDS: LACTOBACILLUS RHAMNOSUS GG 1 EACH CAP NG SCH (08:58)
--- NOTE | 2017-06-24 09:00 | NUR ---
MEDICATION GIVEN THROUGH GT, PT TOLERATED WELL.
[2017-06-24 10:08] LABS: HEPATITIS A ANTIBODY IGM Negative (Negative); HEPATITIS B CORE AB TOTAL Positive (Negative); HEPATITIS B SURFACE ANTIBODY Non Reactive (.); HEPATITIS B SURFACE ANTIGEN Negative (Negative)
--- NOTE | 2017-06-24 10:14 | NUR ---
06/24/17 RD FOLLOW UP COMPLETED Please refer to nutrition assessment under care activity for estimated needs. Recommendations: 1. When medically able resume TF with Novasource Renal at 30 ml/hr -Provides daily: 720 ml total volume, 1440 kcal, 65 gm protein and 516 ml free water to meet 98% of estimated kcal needs and 100% of estimated Protein needs 2. RD will follow up in 2-3 days; high risk. Sarah Bustillo RD, [facility]
--- NOTE | 2017-06-24 10:30 | NUR ---
MODERATED AMOUNT YELLOWISH EMESIS LEAKING OUT FROM NGT NOTED, STILL HOLDING THE GT FEEDING AT THIS TIME, DR. ZAVALETA MADE AWARE.
[2017-06-24] MEDS ORDERED: POTASSIUM CHLORIDE 10 MEQ TABER PO ONE (10:45)
[2017-06-24] MEDS ORDERED: SPIRONOLACTONE 25 MG TAB PO SCH (11:00)
[2017-06-24] MEDS ORDERED: POTASSIUM CHLORIDE 20% 40 MEQ/15 ML UDC GT SCH (11:00)
[2017-06-24] MEDS: CHLORHEXADINE GLUC 2% CLOTH TP SCH (11:41)
[2017-06-24 12:00] VITALS: BP 126/51
--- NOTE | 2017-06-24 12:00 | NUR ---
NO CHANGE OF CONDITION AT THIS TIME, VSS, NO S/S OF DISTRESS.
[2017-06-24] MEDS ORDERED: KCL 20 MEQ/WATER INJ PREMIX 100 ML IV ONE (13:10)
--- NOTE | 2017-06-24 13:15 | NUR ---
WOUND ASSESSMENT DONE AND DRESSING CHANGED.
[2017-06-24] MEDS ORDERED: MAGNESIUM OXIDE 400 MG TAB PO SCH (13:30)
[2017-06-24 16:00] VITALS: BP 122/53
--- NOTE | 2017-06-24 16:00 | NUR ---
ORAL CARE AND PM CARE PROVIDED, GREGG CATHETER CARE PROVIDED, POSITION CHANGED FOR OFF LOAD PRESSURE, VSS, FLACC 0.
[2017-06-24] MEDS: MUPIROCIN 2% OINT 22 GM TUBE TP SCH (16:01)
--- NOTE | 2017-06-24 16:30 | NUR ---
PT'S DAUGHTER REQUESTS TO TALK TO MD, DR. ZAVALETA TALKED TO HER AND EXPLAINED THE PLAN OF CARE. SATISFACTION RECEIVED.
--- NOTE | 2017-06-24 17:20 | NUR ---
CONTINUED TO MONITOR PT ON VENT WITH SETTINGS CHARTED BREATH SOUNDS PRESENT BILAT MOSTLY CLEAR SXN PT WITH MIN AMT OFF WHITE SECS TRACH SITE SECURE AMBU BAG AT BEDSIDE VENT PLUGGED INTO RED OUTLET
--- NOTE | 2017-06-24 19:20 | NUR ---
RECEIVED PT SLEEPING, OPEN EYES TO TOUCH, APHASIC, ON TRACH TO VENT WITH 24% FIO2, ON CONTINUOUS PULSE OX, VITAL SIGNS STABLE, NGT TO RT NARES AND G-TUBE CLAMPED, WITH ORDER TO HOLD TUBE FEEDING UNTIL FURTHER ORDERS, HOB ELEVATED 30 DEGREES AT ALL TIMES, LEFT UA PICC LINE [address] WITH DRESSING DRY AND INTACT, GREGG CATHETER IN PLACE WITH CLEAR YELLOW OUTPUT, SCD IN PLACE, ON WOUND BED, CONTACT PRECAUTION FOR MRSA OF NARES AND ESBL OF URINE, PLAN OF CARE DISCUSSED WITH DAUGHTER AT BEDSIDE, SAFETY MEASURES IN PLACE, SIDE RAILS UP AND BED ALARM ON, TO REPOSITION Q2H AND OFFLOAD PRESSURE AREAS, CALL LIGHT WITHIN REACH.
[2017-06-24 20:00] VITALS: BP 138/64
--- NOTE | 2017-06-24 21:18 | NUR ---
10 ML RESIDUAL NOTED ON THE G-TUBE, DUE MEDICATION GIVEN SLOWLY THROUGH THE G-TUBE BUT WITHIN 10 SECONDS GREENISH YELLOW DRAINAGE LEAKING FROM THE STOMA NOTED, 5 ML RESIDUAL NOTED ON THE NGT, DUE REMAINING MEDS GIVEN THROUGH NGT AND WITHIN SEVERAL SECONDS LEAKING NOTED FROM THE G-TUBE STOMA, STOMA CARE CLEANSE WITH STERILE WATER AND PAT DRY, SHAI GAUZE DRESSING APPLIED, G-TUBE AND NGT CLAMPED, CONTINUE TO HOLD TUBE FEEDING, MONITOR CLOSELY, DAUGHTER AT BEDSIDE.
--- NOTE | 2017-06-24 22:00 | NUR ---
PT SLEEPING, NO SIGNS OF DISTRESS, CHANGED POSITION AND OFFLOAD PRESSURE AREAS, MONITORED CLOSELY.
[2017-06-25] VITALS: BP 117/44
--- NOTE | 2017-06-25 03:40 | NUR ---
VITAL SIGNS STABLE, AFEBRILE, ATTEMPT TO DO ORAL CARE BUT PT KEEPS HER MOUTH CLOSED, UNABLE TO FOLLOW COMMAND, NO RESP DISTRESS NOTED, MONITORED CLOSELY.
[2017-06-25 04:00] VITALS: BP 137/47
--- NOTE | 2017-06-25 04:28 | NUR ---
BM WITH SOFT LARGE BROWNISH STOOL, PERINEAL CARE AND SPONGE BATH DONE, SACRAL DRESSING SOILED, OPTIFOAM DRESSING REPLACED, CONTINUE TO REPOSITION Q2H AND OFFLOAD PRESSURE AREAS, MONITORED CLOSELY.
--- NOTE | 2017-06-25 05:40 | NUR ---
AM LABS DRAWN FROM THE LEFT UA PICC LINE WITH GOOD BLOOD RETURN, BLOOD SUGAR CHECKED WITH 143 RESULT, G-TUBE STOMA WITH MODERATE YELLOWISH GREEN DRAINAGE, NEW SHAI GAUZE APPLIED, NO DISTRESS NOTED, DAUGHTER AT BEDSIDE, MONITORED CLOSELY.
[2017-06-25] MEDS: BLOOD GLUCOSE MONITORING 1 DEV DEV FS SCH ×4 (06:45→20:42)
[2017-06-25 06:50] LABS: BASOPHILS # (AUTO) 0.3 K/uL (0.00-0.22); BASOPHILS % (AUTO) 4.3 % (0.0-2.0); EOSINOPHILS # (AUTO) 0.1 K/uL (0-0.4); EOSINOPHILS % (AUTO) 1.9 % (0.0-4.0); HEMATOCRIT 27.5 % (36-48); HEMOGLOBIN 8.9 g/dL (12.0-16.0); LYMPHOCYTES # (AUTO) 1.6 K/uL (2.5-16.5); LYMPHOCYTES % (AUTO) 22.6 % (20.5-51.1); MEAN CORPUSCULAR HEMOGLOBIN 32 pg (27-31); MEAN CORPUSCULAR HGB CONC 33 g/dL (33-37); MEAN CORPUSCULAR VOLUME 98.3 fL (80-94); MONOCYTES # (AUTO) 0.5 K/uL (0.8-1.0); MONOCYTES % (AUTO) 6.4 % (1.7-9.3); NEUTROPHILS # (AUTO) 4.7 K/uL (1.8-7.7); NEUTROPHILS % (AUTO) 64.8 % (42.2-75.2); PLATELET COUNT (AUTO) 237 K/uL (140-450); RED CELL DISTRIBUTION WIDTH 22.1 % (11.6-13.7); WHITE BLOOD COUNT (AUTO) 7.2 K/uL (4.8-10.8)
--- NOTE | 2017-06-25 06:51 | NUR ---
RECEIVED PT ON AC VC, FI02 24%, VT 450, RR 10, PEEP 5 AND ON PORTEX 7. THE AIRWAY IS SECURED AND PATENT. VENT IS PLUGGED INTO RED OUTLET AND AMBU BAG IS PRESENT IN ROOM. VENT ALARMS ARE SET AND WORKING. SUCTIONED PT WITH SCANT CLEAR THIN SECRETIONS. NO RESPIRATORY DISTRESS NOTED.
--- NOTE | 2017-06-25 07:15 | NUR ---
PT SLEEPING, NO SIGNS OF DISTRESS, REPORT GIVEN TO JARVIS SCHWARTZ FOR CONTINUITY OF CARE.
[2017-06-25 07:38] LABS: ANION GAP 19.6 (8-16); CARBON DIOXIDE 22.7 mmol/L (21-32); CHLORIDE 106 mmol/L (98-107); CREATININE 2.9 mg/dL (0.6-1.3); GLUCOSE 186 mg/dL (74-106); POTASSIUM 3.3 mmol/L (3.5-5.1); SODIUM SERUM 145 mmol/L (136-145)
[2017-06-25 07:47] LABS: MAGNESIUM 1.6 mg/dL (1.8-2.4); PHOSPHORUS 4.8 mg/dL (2.5-4.9)
[2017-06-25 07:54] LABS: UREA NITROGEN, BLOOD 95 mg/dL (7-18)
[2017-06-25 08:00] VITALS: BP 128/54
[2017-06-25] MEDS: CALCIUM ACETATE 667 MG TAB PO SCH ×2 (08:18→17:00)
[2017-06-25] MEDS: CARVEDILOL 6.25 MG TAB GT SCH (08:35)
[2017-06-25] MEDS: SPIRONOLACTONE 25 MG TAB PO SCH (08:37)
[2017-06-25] MEDS: LACTOBACILLUS RHAMNOSUS GG 1 EACH CAP NG SCH (08:37)
[2017-06-25] MEDS: SENNA 8.6 MG TAB GT SCH ×2 (08:38→20:20)
[2017-06-25] MEDS: DIGOXIN 0.125 MG/2.5 ML UDC GT SCH ×2 (08:38→09:00)
[2017-06-25] MEDS: levETIRAcetam 100 MG/ML ORASYR GT SCH ×2 (08:40→20:20)
[2017-06-25] MEDS: FUROSEMIDE 40 MG/4 ML VIAL IVP SCH ×2 (08:41→17:18)
[2017-06-25] MEDS: PANTOPRAZOLE 40 MG INJ VIAL IVP SCH (08:41)
--- NOTE | 2017-06-25 11:30 | NUR ---
PT. IS LYING ON LEFT LATERAL POSITION, SLEEPING, BLOOD GLUCOSE CHECK DONE AT THIS TIME, 200MG/DL. GAVE 2 UNITS OF INSULIN (HUMALOG), SUBQ. ON RT UPPER ARM. NO SIGNS OF DISTRESS NOTED AT THIS TIME. WILL CONTINUE TO MONITOR.
[2017-06-25] MEDS: INSULIN LISPRO SLIDING SCALE 100 UNITS/ML VIAL SUBQ PRN ×2 (11:57→20:39)
[2017-06-25 12:00] VITALS: BP 149/48
[2017-06-25] MEDS: CHLORHEXADINE GLUC 2% CLOTH TP SCH (12:00)
[2017-06-25] MEDS ORDERED: BACTRIM IV PER PHARMACY MC PRN (12:10)
--- NOTE | 2017-06-25 13:26 | NUR ---
PT IS SLEEPING, LYING SUPINE ON THE BED. NO SIGNS OF DISCOMFORT NOTED AT THIS TIME. CALL LIGHT WITHIN REACH. Addendum: 06/25/17 at 1334 by Yari Theodore RN PT IS SLEEPING ON HER LEFT LATERAL POSITION. NO SIGNS OF DISTRESS NOTED AT THIS TIME. WILL CONTINUE TO MONITOR.
--- NOTE | 2017-06-25 13:42 | NUR ---
INFORMED DR. WAQAR HARRELL OF PT'S LOW LAB RESULTS OF POTASSIUM (3.3) AND MAGNESIUM (1.6) AND REQUESTED TO PUT AN ORDER FOR A DIGOXIN TOXICITY LEVEL TEST FOR THE PT.
[2017-06-25] MEDS ORDERED: MAG SULF 2000 MG/WATER PREMIX 50 ML IV SCH (13:44)
[2017-06-25] MEDS ORDERED: KCL 20 MEQ/WATER INJ PREMIX 100 ML IV SCH ×2 (13:44→16:00)
--- NOTE | 2017-06-25 14:35 | NUR ---
PER JARVIS FINLEY. SHE REMOVED PATIENT'S G-TUBE PER DR. OSUNA'S ORDER SINCE IT WAS STILL LEAKING. SITE COVERED WITH GAUZE, MINIMAL DRAINAGE NOTED.
[2017-06-25] MEDS: ALBUTEROL SULFATE/IPRATROPIU 3 ML SOL IH PRN (15:11)
[2017-06-25 16:00] VITALS: BP 150/50
[2017-06-25] MEDS: MUPIROCIN 2% OINT 22 GM TUBE TP SCH (16:55)
[2017-06-25] MEDS ORDERED: KCL 20 MEQ/WATER INJ PREMIX 100 ML IV ONE (17:04)
--- NOTE | 2017-06-25 17:12 | NUR ---
PT IS CURRENTLY ON AC 450, FI02 24%, PEEP 5, RR 10. VENT IS PLUGGED TO RED OUTLET AND AMBUBAG IS IN ROOM. NO RESPIRATORY DISTRESS/SOB NOTED. AIRWAY IS SECURED AND PATENT. DAUGHTER IS AT BEDSIDE.
--- NOTE | 2017-06-25 17:18 | NUR ---
PT IS LYING SUPINE, AWAKE, WITH DAUGHTER ON THE BEDSIDE. ADMINISTERED MEDICATION. NO UNTOWARD SYMPTOMS NOTED. ALL NEED ARE MET AT THIS TIME. WILL CONTINUE TO MONITOR.
--- NOTE | 2017-06-25 17:40 | NUR ---
PATIENT'S PHOSLO HELD, PATIENT HAS NO G -TUBE ACCESS AT THIS TIME AND ABDOMINAL STOMA HAS MINIMAL LEAKAGE.
--- NOTE | 2017-06-25 17:40 | NUR ---
PT IS AWAKE LYING ON THE BED WITH DAUGHTER ON THE BEDSIDE. STARTED THE KCL 50ML/HR VIA IV PIGGYBACK. NO SIGNS OF DISTRESS NOTED ON THE PT. WILL CONTINUE TO MONITOR.
--- NOTE | 2017-06-25 19:24 | NUR ---
ENDORSED PT TO STERILE PREPARATION TECHNICIAN NURSE FOR CONTINUITY OF CARE. PT IS STABLE AT THIS TIME.
--- NOTE | 2017-06-25 19:25 | NUR ---
RECEIVED PT SLEEPING, OPEN EYES TO TOUCH, APHASIC, ON TRACH TO VENT WITH 24% FIO2, ON CONTINUOUS PULSE OX, VITAL SIGNS STABLE, NGT TO RT NARES CLAMPED, G-TUBE STOMA DRESSING SOILED WITH GREENISH FLUID, STOMA CLEANSED WITH STERILE WATER PAT DRY AND COVERED WITH 4X4 GAUZE, HOB ELEVATED 30 DEGREES AT ALL TIMES, K-RIDER INFUSING WELL VIA LEFT UA PICC LINE 2 LUMEN WITH DRESSING DRY AND INTACT, GREGG CATHETER IN PLACE WITH CLEAR YELLOW OUTPUT, SCD IN PLACE, ON WOUND BED, CONTACT PRECAUTION FOR MRSA OF NARES AND ESBL OF URINE, PLAN OF CARE DISCUSSED WITH DAUGHTER AT BEDSIDE, SAFETY MEASURES IN PLACE, SIDE RAILS UP AND BED ALARM ON, TO REPOSITION Q2H AND OFFLOAD PRESSURE AREAS, CALL LIGHT WITHIN REACH.
[2017-06-25 20:00] VITALS: BP 149/48
[2017-06-25] MEDS: MEROPENEM 500 MG in NACL 0.9% 50 ML IV SCH (20:20)
--- NOTE | 2017-06-25 20:30 | NUR ---
BLOOD SUGAR CHECKED WITH 157 RESULT, COVERAGE WILL BE GIVEN, 5ML NGT RESIDUAL NOTED, POSITIVE PLACEMENT CONFIRMED, DUE MEDS ADMINISTERED SLOWLY VIA NGT, IVPB MERREM STARTED, MONITORED FOR REACTION, ORAL CARE DONE WITH ASSIST FROM DAUGHTER MISTY, ALL NEEDS ANTICIPATED.
--- NOTE | 2017-06-25 23:45 | NUR ---
PT SLEEPING, OPEN EYES TO TOUCH, VITAL SIGNS STABLE, ATTEMPT TO DO ORAL BUT NONCOMPLIANT, UNABLE TO FOLLOW COMMANDS, CONTINUE TO REPOSITION Q2H AND OFFLOAD PRESSURE AREAS, G-TUBE STOMA DRESSING WITH MODERATE AMOUNT GREENISH YELLOW DRAINAGE, SITE CLEANED AND COVERED WITH 4X4 GAUZE, CONTINUE TO MONITOR CLOSELY.
[2017-06-26] VITALS (12 sets, daily range): BP systolic 0–148; BP diastolic 0–83
--- NOTE | 2017-06-26 03:30 | NUR ---
PT SEEN WITH EYES OPEN, VITAL SIGNS STABLE, NO SIGNS OF RESP DISTRESS NOTED, SUCTION PRN WITH MODERATE SECRETION NOTED, MONITORED CLOSELY.
--- NOTE | 2017-06-26 05:20 | NUR ---
BLOOD SUGAR CHECKED WITH 146 RESULT, NO COVERAGE NEEDED.
--- NOTE | 2017-06-26 05:51 | NUR ---
AM LABS DRAWN VIA LT UA PICC LINE WITH GOOD BLOOD RETURN, G-TUBE STOMA DRESSING DRY AND INTACT, NGT CLAMPED, PT SLEEPING, NO SIGNS OF RESP DISTRESS, MONITORED CLOSELY.
[2017-06-26] MEDS: BLOOD GLUCOSE MONITORING 1 DEV DEV FS SCH ×4 (06:36→20:52)
[2017-06-26] MEDS: ALBUTEROL SULFATE/IPRATROPIU 3 ML SOL IH PRN ×3 (07:10→18:51)
--- NOTE | 2017-06-26 07:10 | NUR ---
PT SEEN WITH EYES OPEN, NO DISTRESS NOTED, RT NICA AT BEDSIDE, BEDSIDE REPORT GIVEN TO JARVIS CUEVAS FOR CONTINUITY OF CARE.
--- NOTE | 2017-06-26 07:11 | NUR ---
RECEIVED ON A DeltasightSCAPE R860 VENTILATOR PLUGGED INTO RED OUTLET TOLERATING WELL WITHOUT ADVERSE REACTIONS NOTED TO A PORTEX DCT #7 AIRWAY SECURED WITH A LEVON TRACH TUBE KATE CUFF PRESSURE MEASURED NOTED AMBU BAG NOTED AT HOB LOC ASLEEP RESTING COMFORTABLY GOOD CHEST RISE AIRWAY PATENT
--- NOTE | 2017-06-26 07:15 | NUR ---
RECEIVED PATIENT REPORT AT BEDSIDE. PATIENT CURRENTLY RECEIVING BREATHING TX. NO S/S OF DISTRESS. PATIENT IS AWAKE BUT APHASIC. PATIENT IS TRACH TO VENT. NGT IN PLACE TO THE RIGHT NARE, CLAMPED. G-TUBE SITE COVERED WITH 4X4 GAUZE WITH MINIMAL DRAINAGE NOTED. GREGG CATHETER IN PLACE, DRAINING YELLOW URINE. LEFT ARM PICC IN PLACE WITH CLEAN, DRY AND INTACT DRESSING. SCD IN PLACE. PATIENT ON TELE AND CONTINUOUS O2 MONITORING. FALL PRECAUTIONS IN PLACE. WILL CONTINUE TO MONITOR
[2017-06-26 07:23] LABS: BASOPHILS # (AUTO) 0.2 K/uL (0.00-0.22); BASOPHILS % (AUTO) 2.5 % (0.0-2.0); EOSINOPHILS # (AUTO) 0.1 K/uL (0-0.4); EOSINOPHILS % (AUTO) 0.8 % (0.0-4.0); HEMATOCRIT 27.5 % (36-48); LYMPHOCYTES # (AUTO) 1.6 K/uL (2.5-16.5); LYMPHOCYTES % (AUTO) 19.3 % (20.5-51.1); MEAN CORPUSCULAR HEMOGLOBIN 32 pg (27-31); MEAN CORPUSCULAR HGB CONC 33 g/dL (33-37); MEAN CORPUSCULAR VOLUME 98.7 fL (80-94); MONOCYTES # (AUTO) 0.5 K/uL (0.8-1.0); MONOCYTES % (AUTO) 6.5 % (1.7-9.3); NEUTROPHILS # (AUTO) 5.7 K/uL (1.8-7.7); NEUTROPHILS % (AUTO) 70.9 % (42.2-75.2); PLATELET COUNT (AUTO) 234 K/uL (140-450); RED BLOOD CELL COUNT(AUTO) 2.79 MIL/uL (4.20-5.40); RED CELL DISTRIBUTION WIDTH 22.2 % (11.6-13.7); WHITE BLOOD COUNT (AUTO) 8.1 K/uL (4.8-10.8)
--- NOTE | 2017-06-26 09:18 | NUR ---
NO EVIDENCE OF PULMONARY DISTRESS AT THIS TIME BREATH SOUNDS CLEAR BILATERAL WITH GOOD CHEST RISE AND AERATION THROUGHOUT DAUGHTER AT BEDSIDE
[2017-06-26] MEDS: LACTOBACILLUS RHAMNOSUS GG 1 EACH CAP NG SCH (09:45)
[2017-06-26] MEDS: PANTOPRAZOLE 40 MG INJ VIAL IVP SCH (09:46)
[2017-06-26] MEDS: SENNA 8.6 MG TAB GT SCH ×2 (09:46→20:32)
[2017-06-26] MEDS: FUROSEMIDE 40 MG/4 ML VIAL IVP SCH ×2 (09:47→16:58)
[2017-06-26] MEDS: levETIRAcetam 100 MG/ML ORASYR GT SCH ×2 (09:48→20:33)
[2017-06-26] MEDS: CALCIUM ACETATE 667 MG TAB PO SCH ×2 (09:48→16:59)
[2017-06-26] MEDS: CARVEDILOL 6.25 MG TAB GT SCH (09:48)
[2017-06-26] MEDS: DIGOXIN 0.125 MG/2.5 ML UDC GT SCH (09:49)
[2017-06-26] MEDS: SPIRONOLACTONE 25 MG TAB PO SCH (09:51)
--- NOTE | 2017-06-26 10:00 | NUR ---
PATIENT GIVEN BED BATH. PATIENT TURNED AND REPOSITIONED FOR COMFORT. OPTIFOAM DRESSING ON THE INTERGLUTEAL WOUND. Z-GUARD REAPPLIED.
[2017-06-26] MEDS: MEROPENEM 500 MG in NACL 0.9% 50 ML IV SCH ×2 (10:18→20:34)
--- NOTE | 2017-06-26 10:40 | NUR ---
CM NOTE RECEIVED FAX FROM [facility] STATING APPROVED 06/21/17 PER DRG, NRD 06/28/17, [phone], DO NOT FAX DAILY REVIEWS, FAX D/C SUMMARY IF MBR PRIOR TO NRD, CONTACT [facility] FOR D/C PLANNING ASSISTANCE ABDULKADIR Franco RN PH# [phone] EXT [phone]. PROGRESS NOTES FAXED TO [facility] [phone] PH# [phone] ABDULKADIR Franco RN EXT [phone].
--- NOTE | 2017-06-26 11:30 | NUR ---
PATIENT ASLEEP IN BED NO S/S OF DISTRESS. DAUGHTER PRESENT AT BEDSIDE
--- NOTE | 2017-06-26 11:48 | NUR ---
RESTING COMFORTABLY NO DISTRESS NOTED GOOD CHEST RISE DAUGHTER AT BEDSIDE
[2017-06-26] MEDS: CHLORHEXADINE GLUC 2% CLOTH TP SCH (12:31)
[2017-06-26] MEDS: INSULIN LISPRO SLIDING SCALE 100 UNITS/ML VIAL SUBQ PRN ×2 (12:35→20:52)
[2017-06-26 13:11] LABS: UREA NITROGEN, BLOOD 90 mg/dL (7-18)
--- NOTE | 2017-06-26 13:35 | NUR ---
PATIENT SEEN BY DR SANCHEZ
--- NOTE | 2017-06-26 14:58 | NUR ---
ASLEEP NO EVIDENCE OF RESPIRATORY DISTRESS NOTED BREATH SOUNDS CLEAR BILATERAL WITH GOOD CHEST RISE AND AERATION THROUGHOUT AIRWAY PATENT MASIMO RADICAL-7 CONTINUOS PULSE OXIMETRY REMAINS AT BEDSIDE ON AND FUNCTIONING WELL LOW SATURATION ALARM SET AT 92%
[2017-06-26] MEDS ORDERED: POTASSIUM CHLORIDE 10 MEQ TABER PO ONE (16:35)
[2017-06-26 16:39] LABS: ANION GAP 15.2 (8-16); CARBON DIOXIDE 25.4 mmol/L (21-32); CHLORIDE 104 mmol/L (98-107); GLUCOSE 171 mg/dL (74-106); POTASSIUM 3.6 mmol/L (3.5-5.1); SODIUM SERUM 141 mmol/L (136-145)
[2017-06-26] MEDS: MUPIROCIN 2% OINT 22 GM TUBE TP SCH (16:57)
[2017-06-26] MEDS ORDERED: POTASSIUM CHLORIDE 20% 40 MEQ/15 ML UDC NG SCH (17:00)
--- NOTE | 2017-06-26 17:45 | NUR ---
PATIENT ASLEEP IN BED. NO S/S OF DISTRESS NOTED
--- NOTE | 2017-06-26 17:50 | NUR ---
NO SOB NOTED GOOD CHEST RISE AIRWAY PATENT
--- NOTE | 2017-06-26 19:28 | NUR ---
PATIENT REPORT GIVEN AT BEDSIDE. PATIENT ENDORSED IN STABLE CONDITION
--- NOTE | 2017-06-26 19:29 | NUR ---
RECEIVED REPORT FROM DAY SHIFT, PT IS APHASIC, ON A TRACH TO VENT WITH SETTINGS FOLLOWS: FIO2 24%, PEEP 5, VT 450, RATE 10. PT HAS PICC LINE TO LEFT UPPER ARM. PT IS BEDBOUND, PT HAS SACRAL WOUND. UPDATED BOARD. DISCUSSED PLAN OF CARE WITH PT DAUGHTER AT BEDSIDE, PT DAUGHTER VERBALIZED UNDERSTANDING. VITAL SIGNS WITHIN NORMAL LIMITS. PT IN STABLE CONDITION, NO SIGNS OF DISTRESS NOTED. BED IN LOWEST POSITION, CALL LIGHT WITHIN REACH. WILL CONTINUE TO MONITOR.
--- NOTE | 2017-06-26 20:55 | NUR ---
SCHEDULED MEDICATIONS ADMINISTERED BY STUDENTS, INSTRUCTOR AND IVPB BY MYSELF. PT TOLERATED WELL.
[2017-06-27] VITALS (7 sets, daily range): BP systolic 0–153; BP diastolic 0–62
--- NOTE | 2017-06-27 | NUR ---
VITAL SIGNS WITHIN NORMAL LIMITS. PT IN STABLE CONDITION, NO SIGNS OF DISTRESS NOTED. BED IN LOWEST POSITION, CALL LIGHT WITHIN REACH. WILL CONTINUE TO MONITOR.
--- NOTE | 2017-06-27 04:00 | NUR ---
DBP SLIGHTLY LOW, BUT OTHER VITAL SIGNS WITHIN NORMAL LIMITS. PT IN STABLE CONDITION, NO SIGNS OF DISTRESS NOTED. BED IN LOWEST POSITION, CALL LIGHT WITHIN REACH. WILL CONTINUE TO MONITOR.
--- NOTE | 2017-06-27 07:14 | NUR ---
ENDORSED PT TO DAY SHIFT RN FOR CONTINUITY OF CARE. PT IN STABLE CONDITION.
--- NOTE | 2017-06-27 07:15 | NUR ---
RECEIVED PT FROM DERMATOLOGY PROCEDURAL PHYSICIAN NURSE FOR CONTINUITY OF CARE. PT IS ON VENT, WITH NG TUBE IN PLACE AND A PICC LINE ON THE LEFT SIDE. PT IS SLEEPING AND NO SIGNS OF DISCOMFORT NOTED AT THIS TIME. WILL CONTINUE TO MONITOR.
--- NOTE | 2017-06-27 07:15 | NUR ---
RECEIVED PT ON VENT SETTINGS: AC 45O, RATE 10, PEEP 5, FIO2 24%. PATIENT WITH TRACH TUBE PORTEX 7. PATENT AIRWAY. CUFF PRESSURE MAINTAINED AT 30 CMH20. AMBU BAG AT BEDSIDE. VENT PLUGGED INTO RED OUTLET. CONTINUOUS PULSE OX ON PATIENT AT BEDSIDE. NO RESPIRATORY DISTRESS NOTED AT THIS TIME. BREATH SOUNDS COURSE TO CLEAR WITH SUCTIONING. SUCTIONED SMALL AMOUNT OF YELLOW SECRETIONS. NO TX INDICATED AT THIS TIME. VENT ALARMS ON AND AUDIBLE. WILL CONTINUE TO MONITOR.
[2017-06-27] MEDS: BLOOD GLUCOSE MONITORING 1 DEV DEV FS SCH ×4 (07:30→21:21)
--- NOTE | 2017-06-27 08:41 | NUR ---
CM NOTE PROGRESS NOTES FAXED TO [facility] [phone] # [phone] ABDULKADIR Franco RN EXT [phone].
[2017-06-27] MEDS: FUROSEMIDE 40 MG/4 ML VIAL IVP SCH ×2 (09:08→17:29)
--- NOTE | 2017-06-27 09:09 | NUR ---
vent check, no sxn required at this time, pt is resting with no signs of distress noted at this time
[2017-06-27] MEDS: DIGOXIN 0.125 MG/2.5 ML UDC GT SCH (09:10)
[2017-06-27] MEDS: levETIRAcetam 100 MG/ML ORASYR GT SCH ×2 (09:10→21:02)
[2017-06-27] MEDS: INSULIN LISPRO SLIDING SCALE 100 UNITS/ML VIAL SUBQ PRN ×3 (09:13→21:25)
[2017-06-27] MEDS: CARVEDILOL 6.25 MG TAB GT SCH (09:14)
[2017-06-27] MEDS: MEROPENEM 500 MG in NACL 0.9% 50 ML IV SCH ×2 (09:14→21:01)
[2017-06-27] MEDS: CALCIUM ACETATE 667 MG TAB PO SCH ×2 (09:15→16:58)
[2017-06-27] MEDS: LACTOBACILLUS RHAMNOSUS GG 1 EACH CAP NG SCH (09:15)
[2017-06-27 09:28] LABS: HEMOGLOBIN 8.8 g/dL (12.0-16.0); MEAN CORPUSCULAR HEMOGLOBIN 33 pg (27-31); MEAN CORPUSCULAR HGB CONC 33 g/dL (33-37); MEAN CORPUSCULAR VOLUME 100.5 fL (80-94); PLATELET COUNT (AUTO) 223 K/uL (140-450); RED BLOOD CELL COUNT(AUTO) 2.69 MIL/uL (4.20-5.40); RED CELL DISTRIBUTION WIDTH 22.4 % (11.6-13.7); WHITE BLOOD COUNT (AUTO) 8.7 K/uL (4.8-10.8)
[2017-06-27] MEDS: PANTOPRAZOLE 40 MG INJ VIAL IVP SCH (09:32)
[2017-06-27] MEDS: SENNA 8.6 MG TAB GT SCH ×2 (09:33→21:02)
[2017-06-27] MEDS: SPIRONOLACTONE 25 MG TAB PO SCH (09:33)
--- NOTE | 2017-06-27 11:20 | NUR ---
PATIENT RESTING AT THIS TIME. BREATH SOUNDS CLEAR. NO SUCTIONING INDICATED AT THIS TIME. NO TX INDICATED. VENT CHECK DONE. PT TOLERATING VENT SETTINGS WELL. FAMILY AT BEDSIDE. NO RESPIRATORY DISTRESS NOTED AT THIS TIME. WILL CONTINUE TO MONITOR.
[2017-06-27] MEDS: ALBUTEROL SULFATE/IPRATROPIU 3 ML SOL IH PRN (13:37)
--- NOTE | 2017-06-27 13:40 | NUR ---
PATIENT AWAKE. FAMILY AT BEDSIDE. PRN TX GIVEN DUE TO WHEEZING. PT TOLERATED TX WELL. VENT CHECK DONE. TOLERATING VENT SETTINGS. PATIENT TRACH CUFF PRESSURE MAINTAINED. SUCTIONED MODERATE AMOUNT OF THICK YELLOW SECRETIONS. NO RESPIRATORY DISTRESS NOTED AT THIS TIME. WILL CONTINUE TO MONITOR.
--- NOTE | 2017-06-27 13:52 | NUR ---
06/27/17 RD FOLLOW UP COMPLETED PLEASE REFER TO NUTRITION PROGRESS NOTE UNDER CARE ACTIVITY FOR ESTIMATED NUTRITION NEEDS. RD RECOMMENDATIONS: 1. ONCE GTUBE SUCCESSFULLY REPLACED PLEASE RESTART TUBE FEEDINGS NOVASOURCE RENAL AT 10 ML/HR AND ADVANCE 5 ML Q6H TO GOAL OF 30 ML/HR TOLERATED. --PATIENT HAS BEEN WITHOUT NUTRITION SUPPORT X3 DAYS 2. RD WILL F/U 2-3 DAYS; HIGH RISK. ZACHARY SALVADOR, RD
--- NOTE | 2017-06-27 14:46 | NUR ---
CM NOTE INFORMED [facility] ADMISSIONS DANY SINGLETON# [phone] OF POSSIBLE DISCHARGE BACK TO [facility] TOMORROW 06/28/17. PER DANY, [facility] FA[facility]# [phone]. CLINICAL PACKET INCLUDING MICROBIOLOGY RESULTS FAXED TO [facility] FAX# [phone].
--- NOTE | 2017-06-27 15:04 | NUR ---
CM NOTE LEFT VM MESSAGE TO DARIEL PANCHAL PH# [phone] EXT [phone], INFORMING HER OF DISCHARGE PLANNING BACK TO THE SNF POSSIBLY TOMORROW IF THERE IS NO FURTHER LEAK ON G-TUBE AND REQUESTING FOR AUTHORIZATION FOR THE SNF AND FOR THE AMBULANCE MEDICAL TRANSPORTATION, INFORMING HER THAT PATIENT IS ON MECHANICAL VENTILATION.
[2017-06-27 15:10] LABS: EOSINOPHILS % (MANUAL) 3 % (0-4); LYMPHOCYTES % (MANUAL) 14 % (20-46); MONOCYTES % (MANUAL) 3 % (5-12)
[2017-06-27 15:31] LABS: MAGNESIUM 2.3 mg/dL (1.8-2.4)
[2017-06-27 15:32] LABS: PHOSPHORUS 4.8 mg/dL (2.5-4.9)
--- NOTE | 2017-06-27 17:35 | NUR ---
VENT CHECK DONE. TOLERATING VENT SETTINGS DOCUMENTED. AMBU BAG AT BEDSIDE. CONTINUOUS PULSE OX ON PATIENT AT BEDSIDE. VENT PLUGGED INTO RED OUTLET. PER INSTRUCTOR PHYSICAL. SMALL AMOUNT OF WHITE SECRETIONS SUCTIONED. BREATH SOUNDS CLEAR, DIMINISHED BASES. TRACH CARE DONE DOCUMENTED. NO RESPIRATORY DISTRESS NOTED AT THIS TIME. RN AT BEDSIDE.
--- NOTE | 2017-06-27 19:28 | NUR ---
ENDORSED PT TO SOCIAL MEDIA MARKETER NURSE FOR CONTINUITY OF CARE. PT IS LYING COMFORTABLY ON THE BED. NO UNTOWARD SIGNS AND SYMPTOMS NOTED.
--- NOTE | 2017-06-27 19:29 | NUR ---
RECEIVED REPORT FROM DAY NURSE, PT IN STABLE CONDITION. PT ON VENT SETTINGS: AC 45O, RATE 10, PEEP 5, FIO2 24%. PATIENT WITH TRACH TUBE PORTEX 7. PATENT AIRWAY. AMBU BAG AT BEDSIDE. VENT PLUGGED INTO RED OUTLET. CONTINUOUS PULSE OX ON PATIENT AT BEDSIDE. NO RESPIRATORY DISTRESS NOTED AT THIS TIME. BREATH SOUNDS COURSE TO CLEAR WITH SUCTIONING. PICC LINE PATENT AND INTACT, INFUSING WELL. NO TX INDICATED AT THIS TIME. VENT ALARMS ON AND AUDIBLE. WILL CONTINUE TO MONITOR.
--- NOTE | 2017-06-27 20:30 | NUR ---
PT REPOSITIONED FOR COMFORT, PT CLEAN AND DRY, ALL NEEDS MET, WILL CONTINUE TO MONITOR
--- NOTE | 2017-06-27 21:40 | NUR ---
DUE MEDICATIONS GIVEN, PT TOLERATED WELL. VSS, WILL CONTINUE TO MONITOR
--- NOTE | 2017-06-27 21:45 | NUR ---
PT CHANGED AND REPOSITION, DAUGHTER AT THE BEDSIDE. ALL NEEDS MET, WILL CONTINUE TO MONITOR
--- NOTE | 2017-06-27 22:55 | NUR ---
ASLEEP RESTING COMFORTABLY NO DISTRESS NOTED GOOD CHEST RISE DEEP TRACHEAL SUCTION FOR MODERATE THICK YELLOW WITH BLOOD STREAK SECRETIONS AIRWAY PATENT
--- NOTE | 2017-06-27 23:30 | NUR ---
PT RESTING COMFORTABLY IN BED, NO S/S OF DISTRESS NOTED. ALL SAFETY PRECAUTIONS MET, CALL LIGHT WITHIN REACH, WILL CONTINUE TO MONITOR. FLACC-0
[2017-06-27 23:42] LABS: ALBUMIN 2.1 g/dL (3.4-5.0); ANION GAP 23.4 (8-16); ASPARTATE AMINOTRANSFERASE 13 U/L (15-37); CARBON DIOXIDE 23.2 mmol/L (21-32); CHLORIDE 107 mmol/L (98-107); CREATININE 3.3 mg/dL (0.6-1.3); GLUCOSE 166 mg/dL (74-106); MAGNESIUM 2.3 mg/dL (1.8-2.4); PHOSPHORUS 4.8 mg/dL (2.5-4.9); POTASSIUM 3.6 mmol/L (3.5-5.1); SODIUM SERUM 150 mmol/L (136-145)
[2017-06-28] VITALS: BP 118/64
--- NOTE | 2017-06-28 01:15 | NUR ---
LAB CALLED REGARDING CRITICAL LAB VALUE OF BUN 93, WILL NOTIFY DR. ZAMORA
[2017-06-28 01:16] LABS: UREA NITROGEN, BLOOD 93 mg/dL (7-18)
--- NOTE | 2017-06-28 01:17 | NUR ---
REPORTED CRITICAL LAB VALUE OF BUN [address] ZAMORA, PHYSICIAN TO SEE PT
--- NOTE | 2017-06-28 02:29 | NUR ---
COVERED JARVIS NO FOR BREAK. EQUIPMENT OPERATOR NOTIFIED ME THAT PATIENT WAS HAVING BIGEMINY PVCS 25-30/MIN. CHECKED ON PATIENT. VITAL SIGNS TAKEN. BP- 121/39, LA-72. PATIENT ASYMPTOMATIC. DR. ZAMORA NOTIFIED.
--- NOTE | 2017-06-28 02:35 | NUR ---
CHECKED IN ON PT, VSS, RESTING COMFORTABLY IN BED. NO S/S OF DISTRESS. RR EVEN/UNLABORED. WILL CONTINUE TO MONITOR
[2017-06-28 04:00] VITALS: BP 128/66
[2017-06-28] MEDS: INSULIN LISPRO SLIDING SCALE 100 UNITS/ML VIAL SUBQ PRN ×2 (06:47→12:01)
[2017-06-28 06:57] LABS: BASOPHILS # (AUTO) 0.1 K/uL (0.00-0.22); BASOPHILS % (AUTO) 1.4 % (0.0-2.0); EOSINOPHILS # (AUTO) 0.1 K/uL (0-0.4); EOSINOPHILS % (AUTO) 0.7 % (0.0-4.0); HEMATOCRIT 26.6 % (36-48); HEMOGLOBIN 8.6 g/dL (12.0-16.0); LYMPHOCYTES # (AUTO) 2.2 K/uL (2.5-16.5); LYMPHOCYTES % (AUTO) 25.1 % (20.5-51.1); MEAN CORPUSCULAR HEMOGLOBIN 32 pg (27-31); MEAN CORPUSCULAR HGB CONC 33 g/dL (33-37); MEAN CORPUSCULAR VOLUME 99.1 fL (80-94); MONOCYTES # (AUTO) 0.6 K/uL (0.8-1.0); MONOCYTES % (AUTO) 6.4 % (1.7-9.3); NEUTROPHILS # (AUTO) 5.7 K/uL (1.8-7.7); NEUTROPHILS % (AUTO) 66.4 % (42.2-75.2); PLATELET COUNT (AUTO) 214 K/uL (140-450); RED BLOOD CELL COUNT(AUTO) 2.69 MIL/uL (4.20-5.40); RED CELL DISTRIBUTION WIDTH 22.3 % (11.6-13.7); WHITE BLOOD COUNT (AUTO) 8.7 K/uL (4.8-10.8)
[2017-06-28] MEDS: BLOOD GLUCOSE MONITORING 1 DEV DEV FS SCH ×2 (07:30→12:00)
--- NOTE | 2017-06-28 07:31 | NUR ---
REPORT GIVEN TO DAY NURSE FOR CONTINUITY OF CARE, PT IN STABLE CONDITION.
--- NOTE | 2017-06-28 07:32 | NUR ---
RECEIVED REPORT FROM PERSONAL LINES AGENT NURSE MARYBEL AT BEDSIDE FOR CONTINUITY OF CARE. PT IS AWAKE AND NONVERBAL. AAOX1 INTRODUCED SELF AND UPDATED BOARD. TRACH TO VENT. LUNG SOUNDS CLEAR ON AUSCULTATION. NO SOB. O2 SAT 96%. SKIN WARM AND DRY. PICC LINE TO L UPPER ARM INTACT. NS TKO. SACRAL WOUND COVERED WITH DRESSING. DRY AND INTACT. GREGG CATHETER IN PLACE. G-TUBE INTACT WITH FEEDING AT 20ML/HR. NO SIGNS OF DISTRESS. BED IN LOW POSITION. HOB 30 DEGREES. CALL LIGHT WITHIN REACH. WILL CONTINUE TO MONITOR.
[2017-06-28 08:00] VITALS: BP 122/48
[2017-06-28 08:46] LABS: ALBUMIN 1.9 g/dL (3.4-5.0); ANION GAP 16.1 (8-16); ASPARTATE AMINOTRANSFERASE 11 U/L (15-37); CHLORIDE 107 mmol/L (98-107); CREATININE 3.1 mg/dL (0.6-1.3); GLUCOSE 227 mg/dL (74-106); POTASSIUM 3.1 mmol/L (3.5-5.1); SODIUM SERUM 149 mmol/L (136-145); TOTAL BILIRUBIN 0.9 mg/dL (0.0-1.0)
[2017-06-28 08:52] LABS: PHOSPHORUS 4.3 mg/dL (2.5-4.9)
[2017-06-28] MEDS: SENNA 8.6 MG TAB GT SCH (08:54)
[2017-06-28] MEDS: PANTOPRAZOLE 40 MG INJ VIAL IVP SCH (08:54)
[2017-06-28] MEDS: CALCIUM ACETATE 667 MG TAB PO SCH (08:55)
[2017-06-28] MEDS: LACTOBACILLUS RHAMNOSUS GG 1 EACH CAP NG SCH (08:56)
[2017-06-28] MEDS: levETIRAcetam 100 MG/ML ORASYR GT SCH (08:56)
[2017-06-28] MEDS: DIGOXIN 0.125 MG/2.5 ML UDC GT SCH (08:56)
[2017-06-28] MEDS: CARVEDILOL 6.25 MG TAB GT SCH (08:56)
--- NOTE | 2017-06-28 08:56 | NUR ---
ADMINISTERED SCHEDULED MEDS. CHECKED G-TUBE FOR RESIDUAL. 0ML NOTED. FLUSHED WITH 50ML WATER. PT TOLERATING FEEDING WELL. NO SOB. O2 SAT 98% ON VENT. WILL CONTINUE TO MONITOR.
[2017-06-28] MEDS: SPIRONOLACTONE 25 MG TAB PO SCH (08:57)
[2017-06-28] MEDS: FUROSEMIDE 40 MG/4 ML VIAL IVP SCH (08:57)
[2017-06-28 09:10] LABS: UREA NITROGEN, BLOOD 86 mg/dL (7-18)
[2017-06-28] MEDS: MEROPENEM 500 MG in NACL 0.9% 50 ML IV SCH (09:18)
[2017-06-28] MEDS ORDERED: FURO-570 GT (10:04)
[2017-06-28] MEDS ORDERED: LACT1.4C GT (10:04)
[2017-06-28] MEDS ORDERED: FLUC200T GT (10:04)
[2017-06-28] MEDS ORDERED: MERO500P9 IV (10:04)
[2017-06-28] MEDS ORDERED: SPIR50TA GT (10:04)
--- NOTE | 2017-06-28 10:12 | NUR ---
CM NOTE FAXED DISCHARGE ORDER TO [facility] [phone] AND [facility] [phone]. DARIEL Franco PH# [phone] EXT [phone] AWARE. PER DANY OF [facility] PH# [phone], PATIENT WILL GO TO [address] JENNIFER MICHELLE, NUMBER TO CALL FOR REPORT PH# [phone]. PER KRYSTAL OF [facility] PH# [phone] PATIENT WILL BE PICKED UP AT 1300 TODAY GOING TO [facility]. FAXED PCS FORM TO [facility] [phone]. CHARGE NURSE EMMANUELLE CONLEY AWARE. Addendum: 06/28/17 at 1019 by Jennifer Juarez CM DISCHARGE SUMMARY FAXED TO [facility] [phone] ATTN: REG Franco Addendum: 06/28/17 at 1216 by Jennifer Juarez CM PER [facility] # [phone] EXT [phone], FOR [facility] AUTH# [id number]
[2017-06-28] MEDS ORDERED: KCL 20 MEQ/WATER INJ PREMIX 200 ML IV SCH (10:55)
--- NOTE | 2017-06-28 11:17 | NUR ---
CALLED PT'S DAUGHTER AND INFORMED HER FOR D/C TODAY AND [facility] BED WORKER TIME 1PM
[2017-06-28 12:00] VITALS: BP 116/53
--- NOTE | 2017-06-28 12:48 | NUR ---
CALLED [facility] AND GAVE REPORT TO JARVIS PUCKETT. GAVE STORE SHOPPER TIME 1PM AND CALL BACK NUMBER.
--- NOTE | 2017-06-28 13:35 | NUR ---
PT D/C TO GO TO [facility]. GAVE INSTRUCTIONS, FORMS, RX, AND FOLLOW UP APPOINTMENT TO PT'S DAUGHTER AYAKA WHO SIGNED FORMS. VERBALIZED UNDERSTANDING. GAVE REPORT TO [facility] TRANSPORTER. G-TUBE, GREGG CATHETER AND PICC LINE TO L UPPER ARM SL IN PLACE. PT CONTINUED ON TRACH TO VENT ON ORDERED SETTINGS. PT LEFT WITH ALL PERSONAL BELONGINGS GATHERED BY DAUGHTER. PT LEFT UNIT VIA GURNEY ACCOMPANIED BY TRANSPORTERS. LEFT IN STABLE CONDITION.
== END 2017-06-28 13:40 | DRG 222 ==
LOC: MED 01:14 → MTU 03:30 → OBSVTOIN 12:36
PROVIDERS: ADMIT Student in an Organized Health Care Education/Training Program; ATTEND Student in an Organized Health Care Education/Training Program
PROC: 5A1955Z Respiratory Ventilation, Greater than 96 Consecutive Hours (ICD-10-PCS; principal; 2017-06-21)
PROC: 0DH67UZ Insertion of Feeding Device into Stomach, Via Natural or Artificial Opening (ICD-10-PCS; 2017-06-21)
PROC: 0W993ZZ Drainage of Right Pleural Cavity, Percutaneous Approach (ICD-10-PCS; 2017-06-22)
PROC: 0D20XYZ Change Other Device in Upper Intestinal Tract, External Approach (ICD-10-PCS; 2017-06-27)
DX: K94.23 Gastrostomy malfunction (principal); N17.0 Acute kidney failure with tubular necrosis; J96.21 Acute and chronic respiratory failure with hypoxia; K76.7 Hepatorenal syndrome; E43 Unspecified severe protein-calorie malnutrition; J90 Pleural effusion, not elsewhere classified; J18.9 Pneumonia, unspecified organism; I50.43 Acute on chronic combined systolic (congestive) and diastolic (congestive) heart failure; Z99.11 Dependence on respirator [ventilator] status; K72.90 Hepatic failure, unspecified without coma; L89.302 Pressure ulcer of unspecified buttock, stage 2; I13.0 Hypertensive heart and chronic kidney disease with heart failure and stage 1 through stage 4 chronic kidney disease, or unspecified chronic kidney disease; I48.2 Chronic atrial fibrillation; E11.22 Type 2 diabetes mellitus with diabetic chronic kidney disease; E87.1 Hypo-osmolality and hyponatremia; G40.909 Epilepsy, unspecified, not intractable, without status epilepticus; N18.9 Chronic kidney disease, unspecified; E83.39 Other disorders of phosphorus metabolism; E11.649 Type 2 diabetes mellitus with hypoglycemia without coma; N39.0 Urinary tract infection, site not specified; E83.42 Hypomagnesemia; I27.20 Pulmonary hypertension, unspecified; I35.0 Nonrheumatic aortic (valve) stenosis; I42.0 Dilated cardiomyopathy; K64.8 Other hemorrhoids; E66.01 Morbid (severe) obesity due to excess calories; K85.90 Acute pancreatitis without necrosis or infection, unspecified; K74.60 Unspecified cirrhosis of liver; D63.1 Anemia in chronic kidney disease; Z93.0 Tracheostomy status; Z22.322 Carrier or suspected carrier of Methicillin resistant Staphylococcus aureus; Z86.718 Personal history of other venous thrombosis and embolism; Z68.39 Body mass index [BMI] 39.0-39.9, adult; Z79.4 Long term (current) use of insulin; I69.354 Hemiplegia and hemiparesis following cerebral infarction affecting left non-dominant side; K92.2 Gastrointestinal hemorrhage, unspecified; Z79.82 Long term (current) use of aspirin; K94.29 Other complications of gastrostomy; Y82.8 Other medical devices associated with adverse incidents; Y83.3 Surgical operation with formation of external stoma as the cause of abnormal reaction of the patient, or of later complication, without mention of misadventure at the time of the procedure; Y92.89 Other specified places as the place of occurrence of the external cause
CPT/HCPCS: 43760; 99285; G0378; 36415; 71045; 74018; 76604; 76700; 76770; 76942; 80048; 80053; 80162; 81001; 82140; 82150; 82272; 82945; 82948; 83036; 83605; 83615; 83690; 83735; 83880; 84100; 84133; 84157; 84300; 84436; 84443; 84479; 84484; 85025; 85610; 85730; 86704; 86706; 86708; 86709; 86803; 87040; 87070; 87075; 87081; 87086; 87186; 87205; 87340; 89051; 93005; 93970; 94003; 94640; C9113; J1644; J1815; J1940; J2001; J2185; J2270; J2543; J3475; J3480; J7030; J7042; J7060; J7620; Q0092; Q9967